=== PATIENT | male | born 1975 | race Caucasian/White ===

== ENCOUNTER 2017-06-10 08:33 | Emergency (ER) | payer OTHER, BC ==
[~2017-06-10 08:33] MED LIST: FELO10TA2 PO
[2017-06-10 08:38] VITALS: BP 200/117; PULSE 100; TEMP 36.6; O2SAT 97; Ht 167.6 cm
[2017-06-10] MEDS ORDERED: GLC/500 PO (08:52)
[2017-06-10] MEDS ORDERED: EPP3/2 IM (08:52)
[2017-06-10] MEDS ORDERED: XYLOCAINE 1%/SOD BICARB 20 ML VIAL INFIL ONE (09:30)
[2017-06-10] MEDS ORDERED: DIPHTHERIA/TETANUS/PERTUSSIS 0.5 ML SYR/VIAL IM. ONE (09:30)
--- NOTE | 2017-06-10 09:46 | EMERGENCY ROOM VISIT NOTE ---
ED Visit Note First contact with patient: 09:14 CHIEF COMPLAINT: Left fourth Finger laceration HISTORY OF PRESENT ILLNESS: This 42-year-old male patient cut the left fourth finger on a ping barrel while at work this morning.. The bleeding has stopped. Denies weakness or numbness of the finger. The patient's tetanus is not up-to -date. The patient is right-hand dominant. REVIEW OF SYSTEMS: 6 system review was performed and was negative unless stated otherwise in history of present illness. PMH: The patient is healthy; obesity SOCIAL HISTORY: Patient denies any tobacco use but admits to occasional alcohol use. PHYSICAL EXAM: Vital Signs: Were reviewed Reviewed Nurse's notes. GENERAL: 42- year-old white male appears in no acute distress. MENTAL Status: Alert and oriented 3. LEFT FOURTH FINGER: There is a 2 cm flap-like laceration on the palmar aspect of the distal phalanx . The edges gape apart with traction. There is no foreign material in the wound and it looks clean. There is no bleeding. No deep structures such as tendons or nerves are seen in the base of the wound. Extension of the finger is full and strong. EMERGENCY DEPARTMENT COURSE: The patient was evaluated. Adacel was given. Wound Repair: Complexity: Basic. Verbal consent was obtained after the risks and benefits were explained, including but not limited to bleeding, scarring, infection, pain, and bone/joint /nerve damage. The skin was prepped with betadine and a sterile field set. The wound was anesthetized with 2.0 ml of 1% buffered lidocaine. Copious irrigation was performed using sterile saline. The wound was explored for foreign bodies and a few pieces of dirt were removed. The edges of the wound were very irregular and and therefore they were trimmed off. The wound edges were approximated using 5-0 Ethilon with 5 simple interrupted sutures. Hemostasis and excellent approximation was achieved. Antibacterial ointment and a sterile dressing applied. Detailed wound care instructions and signs and symptoms of infection reviewed with the patient. No complications and the patient tolerated the procedure well. DIAGNOSIS: 2 cm left fourth Finger laceration DISCHARGE INSTRUCTIONS & TREATMENT: Keep wound clean and dry. No water on the area for 12-24 hrs then no soaking until sutures removed. Do not allow any crusting or dried blood to accumulate on sutures. If this occurs, use a 1:1 solution of hydrogen peroxide/water on a Q-tip to clean the wound. Use an antibiotic ointment for 3-4 days, then let wound dry. Suture removal in 8-10 days. Follow up sooner for any signs of infection (increasing redness, swelling , drainage). Ice and elevate for swelling and pain. Tylenol 650 mg every 6 hrs for pain. Current/Historical Medications Scheduled Epinephrine (Epipen), 0.3 MG IM UD Felodipine (Plendil), 10 MG PO DAILY Metformin Hcl (Glucophage), 500 MG PO DAILY Allergies Coded Allergies: MORGAN Inhibitors (Verified Adverse Reaction, Intermediate, swelling to face , 06/10/17) Vital Signs Date Time Temp Pulse Resp B/P (MAP) Pulse Ox O2 Delivery O2 Flow Rate FiO2 06/10/17 08:38 36.6 100 20 200/117 97 Room Air Medications Administered Medications (Trade) Dose Ordered Sig/Leslie Route Start Time Stop Time Status Last Admin Dose Admin Diphtheria/ Pertussis/Tetanus Vacc (Adacel Inj) 0.5 ml ONCE ONCE IM. 06/10/17 09:30 06/10/17 09:31 DC 06/10/17 09:28 0.5 ML Departure Information Referrals No Doctor, Assigned (PCP) Patient Instructions [facility]
== END 2017-06-10 09:55 | disposition home or self-care (01) ==
LOC: C.EDB 08:34
DX: S61.215A Laceration without foreign body of left ring finger without damage to nail, initial encounter (principal); W26.8XXA Contact with other sharp object(s), not elsewhere classified, initial encounter; Y99.0 Civilian activity done for income or pay; Y92.89 Other specified places as the place of occurrence of the external cause; Z23 Encounter for immunization; E66.9 Obesity, unspecified; Z79.899 Other long term (current) drug therapy

== ENCOUNTER → 2017-06-13 | Outpatient (CLI) | payer OTHER, BC ==
[~2017-06-13] MED LIST changes: +EPP3/2 IM; +GLC/500 PO
--- NOTE | 2017-06-13 10:41 | DIAGNOSTIC IMAGING REPORT ---
LEFT FOURTH FINGER 3 VIEWS CLINICAL HISTORY: Left fourth finger pain status post trauma COMPARISON: None. DISCUSSION: No fractures or dislocations are visualized. There is distal soft tissue swelling. IMPRESSION: No fractures or dislocations identified. Electronically signed by: Faisal Simmons M.D. 06/13/2017 10:40 AM Dictated Date/Time: 06/13/2017 10:39 AM
== END | disposition home or self-care (01) ==
LOC: C.RAD1850 10:26
PROVIDERS: ATTEND Physician Assistant
DX: S69.92XA Unspecified injury of left wrist, hand and finger(s), initial encounter (principal); X58.XXXA Exposure to other specified factors, initial encounter

== ENCOUNTER 2019-05-05 15:41 | Inpatient (IN) ==
--- OUTSIDE RECORDS SUMMARY | 2019-05-05 15:45 | External Medical Summary | Continuity of Care Document ---
:1975 Author Name Renny Garcia, Provider Address Unavailable Unavailable , Care Team Providers Name Role Phone Didi Nichols PA-C Unavailable [email or web address] Unavailable Unavailable Unavailable Unavailable Unavailable Problems Visit for pre-operative examination (V72.84) (Z01.818) Chronic tonsillitis (474.00) (J35.01) Obstructive sleep apnea (327.23) (G47.33) Nasal congestion (478.19) (R09.81) Tonsillar hypertrophy (474.11) (J35.1) Hearing loss (389.9) (H91.90) Functional Status Hearing loss Allergies and Adverse Reactions No Known Drug Allergies (Allergy) Medications Felodipine ER TB24 Refills: 0 Omeprazole 40 MG Oral Capsule Delayed Release; TAKE 1 CAPSULE DAILY. Radha Adame Start: 03-Nov-2011 Quantity: 30 Refills: 3 Procedures History of Oral Surgery Tooth Extraction Status: Completed Immunizations Influenza Comments:Denied for 2010 Family History Father Family history of Acute Myocardial Infarction (V17.3) Status : Active Plan of Treatment Planned Observations Planned Goals not documented Results No Known Results Results not documented
[2019-05-05] MEDS ORDERED: SODIUM CHLORIDE 0.9% 1000ML 2,000 ML IV SCH (16:30)
[2019-05-05] MEDS ORDERED: CEFEPIME 2,000 MG/20 ML VIAL IV STA (16:51)
[2019-05-05] MEDS ORDERED: ACETAMINOPHEN 1,000 MG/100 ML VIAL IV STA (16:51)
--- NOTE | 2019-05-05 16:51 | Emergency Department Note ---
ED Provider Note CHIEF COMPLAINT: Left flank pain, fevers and chills HISTORY OF PRESENTING ILLNESS: This is a 43-year-old male with past medical history significant for hypertension and type 2 diabetes on oral medications only, who presents to the emergency department with complaint of left flank pain, fevers and chills. Patient states that he saw his PCP this morning for the symptoms, he had a CT scan that showed a blocking kidney stone on the left side. He states that his urine also showed some infection and large amounts of blood. His doctor called him and told him to go to the ER for further management. He denies any history of previous kidney stones or kidney issues. He currently rates his pain 4/10 and reports that he is feeling much improved after receiving some pain medication from his doctor earlier today. He denies any nausea currently. He still feels feverish and has some chills. He denies chest pain, shortness of breath, cough, dizziness or syncope. He denies any unusual rash. REVIEW OF SYSTEMS: A complete 10 point review of systems was reviewed with the patient with pertinent positives and negatives as per history of present illness. All else were negative. PAST MEDICAL HISTORY: Hypertension, type 2 diabetes SOCIAL HISTORY: Lives at home, he denies tobacco use ALLERGIES: Reviewed in chart and with the patient PHYSICAL EXAM: CONSTITUTIONAL: Pleasant and cooperative. Nontoxic-appearing and in no acute distress. Mildly dehydrated, but otherwise well appearing and well nourished. HEENT: Normocephalic, atraumatic. PERRL, EOMI. Pharynx normal. Tacky mucous membranes. NECK: Supple, full active range of motion without discomfort. No cervical adenopathy. RESPIRATORY: Clear to auscultation bilaterally with no wheezing, crackles, rhonchi or stridor. Equal expansion bilaterally. CARDIOVASCULAR: Regular rate and rhythm with no murmurs, rubs or gallops. Normal peripheral perfusion. No pitting edema. GASTROINTESTINAL: Soft, nontender, nondistended, obese abdomen. No palpable masses or HSM. Bowel sounds present in all quadrants. Left CVA tenderness to percussion. MUSCULOSKELETAL: Full range of motion of all joints without discomfort. INTEGUMENTARY: No rash or other significant dermatologic conditions noted. NEUROLOGIC: Alert and oriented X 4 with normal affect. Normal speech. Normal gait observed. ED COURSE AND MEDICAL DECISION MAKING: CC: Patient presenting with complaint of left flank pain, fevers and chills DIFFERENTIAL DIAGNOSIS: Includes, but not limited to ureteral stone, infected stone, UTI, pyelonephritis, EMBER, sepsis/bacteremia, dehydration, electrolyte abnormality, among others. INTERPRETATION OF LABS: Marked leukocytosis with left shift, no anemia, normal platelets, no significant electrolyte abnormalities, elevated kidney function tests, fairly normal liver enzymes and lipase. Significantly elevated lactic acid level. Urinalysis appears consistent with UTI with large blood, positive nitrite, positive leuk esterase, large WBCs, and bacteria. Urine culture pending. Blood cultures x2 pending. IMAGING: CT abdomen/pelvis without IV or oral contrast was performed today at 12:14 PM and an outpatient facility, the results of this were reviewed, noting the following impression: 5 x 8 mm left proximal ureteral calculus with mild hydronephrosis. ----- XR chest 1V portable CLINICAL HISTORY: fever, flank pain COMPARISON STUDY: No previous studies for comparison. FINDINGS: Lung volumes are normal. Lungs are clear. There is no pneumothorax or pleural effusion. Cardiac size is normal. Mediastinal contours are normal. There is no evidence for pulmonary edema. Exam is mildly compromised given suboptimal penetration. IMPRESSION: No acute cardiopulmonary findings. EKG: Shows sinus tachycardia with a rate of 125 bpm, no ST or T wave abnormalities with occasional PACs by my interpretation. No previous EKG available for comparison. MEDICATION RECONCILIATION: I attest that I have personally reviewed the patient's current medication list. INITIAL VITAL SIGNS REVIEW: I reviewed the patient's initial vital signs and interpret them as follows: T: Febrile; BP: Hypertensive; HR: Significantly tachycardic; RR: Within normal limits; Pulse Ox: Within normal limits on room air. Blood pressure screening: The patient was found to have an elevated blood pressure, which was felt to be situational. MDM SUMMARY: Patient was evaluated at bedside, history and physical exam performed. Patient is alert and oriented, in no acute distress, resting on the stretcher. Patient is noted to be febrile and significantly tachycardic, but he is nontoxic-appearing. He reports that his pain is currently improved after receiving pain medication from his doctor. There is left-sided CVA tenderness on exam. The abdomen does not seem to be tender, though exam is limited due to patient's body habitus. Orders were placed at bedside for saline lock, IV fluid bolus x2 L, labs, blood culture x2, UA and urine culture, EKG and chest x-ray to evaluate for tachycardia and fever. Records were reviewed from his outpatient visit today, CT report noting 5 x 8 mm proximal left obstructing stone with mild hydronephrosis. Urine dip showed large blood, large glucose, moderate ketones, trace leuk esterase, and positive nitrite. IV Ofirmev ordered to treat fever, 2 g IV cefepime ordered for broad coverage of suspected UTI in the setting of an obstructing kidney stone. Patient discussed with Dr. Freeman, who agrees with my assessment, plan, and disposition. Labs reviewed as above, notable for significant leukocytosis, mild EMBER, and lact ic acidosis. UA appears to be considerably infected, concerning in the setting of a known obstructing ureteral stone. I spoke on the phone with Dr. Ojeda, urology, regarding the patient's findings and concern for infected stone/sepsis, he agreed with the above treatment and plans to take the patient to the OR for stenting this evening. [facility] I spoke to Dr. Juarez, who will evaluate the patient for the admission. Patient reassessed multiple times throughout ED stay, he has remained hemodynamically stable, tachycardia and fever downtrending after Tylenol and fluids. The patient was updated on all results and plan for OR and admission, he verbalized understanding and was agreeable to this plan. The patient was stable at time of transfer to the OR. CRITICAL CARE NOTE: I have personally spent greater than 32 minutes of critical care time in the direct management of this patient. This includes bedside care, interpretation of diagnostic studies, and testing, discussion with consultants, patient, and family members, and other required patient management activities. This 32 minutes is in excess of all separately billable procedures. The chart was completed utilizing [employer] Speech voice recognition software. Grammatical errors, random word insertions, pronoun errors, and incomplete sentences are an occasional consequence of this system due to software limitations, ambient noise, and hardware issues. Any formal questions or concerns about the content, text, or information contained within the body of this dictation should be directly addressed to the nurse practitioner for clarification. Impression & Plan Left ureteral stone, Sepsis, Elevated lactic acid level Past Med/Surg History Medical History Acute UTI Left ureteral stone Social History Preferred Language: Divehi Communication Ability: Effective Data Recovery Planner Required: No Beliefs That Will Affect Care: None Current Living Situation: Parent Other Information That Helps Us Care for You: No Feels Safe at Home: Yes Safety Concerns: Feels Safe At This Time Smoking Status: Never smoker Do You Dip or Chew Tobacco: No ; Second Hand Exposure: No ; Tobacco Cessation Education Requested by Patient: No Hx Alcohol Use: Yes Hx Substance Use: No Results & Data Vital Signs Vital Signs - 24 hr 05/05/19 16:13 05/05/19 16:53 05/05/19 18:09 Temperature 37.8 C H Temperature Source Oral Sepsis Recent Fever Within 48 Hours Yes Sepsis New/Unexplained Change in Mental Status No Sepsis Action Taken by Nursing No Action Required Pulse Rate 138 H Pulse Rate [Apical] 121 H 121 H Pulse Rhythm Regular Pulse Strength Normal Respiratory Rate 22 22 21 Respiratory Effort / Characteristics Non-Labored Spontaneous Respiratory Depth Normal Respiratory Pattern Regular Blood Pressure 158/69 H Blood Pressure [Right Arm] 127/71 123/61 Blood Pressure Mean 98 Blood Pressure Mean [Right Arm] 89 81 Blood Pressure Position Sitting Pulse Oximetry 95 95 96 Oxygen Delivery Method Room Air 05/05/19 19:10 Temperature 37.6 C H Temperature Source Oral Sepsis Recent Fever Within 48 Hours Sepsis New/Unexplained Change in Mental Status Sepsis Action Taken by Nursing Pulse Rate Pulse Rate [Apical] 116 H Pulse Rhythm Pulse Strength Respiratory Rate 18 Respiratory Effort / Characteristics Respiratory Depth Respiratory Pattern Blood Pressure Blood Pressure [Right Arm] 112/69 Blood Pressure Mean Blood Pressure Mean [Right Arm] 83 Blood Pressure Position Pulse Oximetry 96 Oxygen Delivery Method Room Air Laboratory Data Result diagrams: 05/05/19 16:49 05/05/19 16:49 Lab Results 05/05/19 05/05/19 05/05/19 Range/Units 16:49 16:49 16:49 WBC 21.95 H (4.8-10.8) K/uL RBC 5.18 (4.7-6.1) M/uL Hgb 14.9 (14.0-18.0) g/dL Hct 42.0 (42-52) % MCV 81.1 (80-100) fL MCH 28.8 (25-34) pg MCHC 35.5 (32-36) g/dL RDW Std Deviation 42.6 (36.4-46.3) fL RDW Coeff of [place] 14.5 (11.5-14.5) % Plt Count 231 (130-400) K/uL MPV 10.7 H (7.4-10.4) fL Immature Gran % (Auto) 0.6 % Neut % (Auto) 91.6 % Lymph % (Auto) 2.6 % [place] % (Auto) 5.1 % Eos % (Auto) 0.0 % Baso % (Auto) 0.1 % Immature Gran # (Auto) 0.14 H (0.00-0.02) K/uL Neut # (Auto) 20.09 H (1.4-6.5) K/uL Lymph # (Auto) 0.56 L (1.2-3.4) K/uL [place] # (Auto) 1.13 H (0.11-0.59) K/uL Eos # (Auto) 0.01 (0-0.5) K/uL Baso # (Auto) 0.02 (0-0.2) K/uL PT 10.7 (9.0-12.0) Seconds INR 1.0 (0.9-1.1) Sodium (136-145) mmol/L Potassium (3.5-5.1) mmol/L Chloride (98-107) mmol/L Carbon Dioxide (21-32) mmol/L Anion Gap (3-11) BUN (7-18) mg/dl Creatinine (0.6-1.4) mg/dl Est Cr Clr Drug Dosing ml/min Est GFR ( Amer) Est GFR (Non-Af Amer) BUN/Creatinine Ratio (10-20) Glucose (70-99) mg/dl Lactate 3.1 H* (0.4-2.0) mmol/L Calcium (8.5-10.1) mg/dl Total Bilirubin (0.2-1) mg/dl AST (15-37) U/L ALT (12-78) U/L Alkaline Phosphatase (45-117) U/L Total Protein (6.4-8.2) gm/dl Albumin (3.4-5.0) gm/dl Globulin (2.5-4.0) gm/dl Albumin/Globulin Ratio (0.9-2) Lipase (73-393) U/L Urine Color Urine Appearance (Clear) Urine pH (4.5-7.5) Ur Specific [place] (1.000-1.030) Urine Protein (Negative) Urine Glucose (UA) (Negative) Urine Ketones (Negative) Urine Blood (Negative) Urine Nitrite (Negative) Urine Bilirubin (Negative) Urine Urobilinogen (Negative) Ur Leukocyte Esterase (Negative) Urine WBC (Auto) (0-5) /hpf Urine RBC (Auto) (0-4) /hpf U Hyaline Cast (Auto) (0-5) /lpf U Epithel Cells (Auto) (0-5) /lpf Urine Bacteria (Auto) (Negative) Urine Yeast 05/05/19 05/05/19 Range/Units 16:49 18:25 WBC (4.8-10.8) K/uL RBC (4.7-6.1) M/uL Hgb (14.0-18.0) g/dL Hct (42-52) % MCV (80-100) fL MCH (25-34) pg MCHC (32-36) g/dL RDW Std Deviation (36.4-46.3) fL RDW Coeff of [place]so (11.5-14.5) % Plt Count (130-400) K/uL MPV (7.4-10.4) fL Immature Gran % (Auto) % Neut % (Auto) % Lymph % (Auto) % [place] % (Auto) % Eos % (Auto) % Baso % (Auto) % Immature Gran # (Auto) (0.00-0.02) K/uL Neut # (Auto) (1.4-6.5) K/uL Lymph # (Auto) (1.2-3.4) K/uL [place] # (Auto) (0.11-0.59) K/uL Eos # (Auto) (0-0.5) K/uL Baso # (Auto) (0-0.2) K/uL PT (9.0-12.0) Seconds INR (0.9-1.1) Sodium 136 (136-145) mmol/L Potassium 3.6 (3.5-5.1) mmol/L Chloride 103 (98-107) mmol/L Carbon Dioxide 22 (21-32) mmol/L Anion Gap 11.0 (3-11) BUN 19 H (7-18) mg/dl Creatinine 1.41 H (0.6-1.4) mg/dl Est Cr Clr Drug Dosing 93.7 ml/min Est GFR ( Amer) 69.7 Est GFR (Non-Af Amer) 60.2 BUN/Creatinine Ratio 13.3 (10-20) Glucose 278 H (70-99) mg/dl Lactate (0.4-2.0) mmol/L Calcium 9.0 (8.5-10.1) mg/dl Total Bilirubin 0.9 (0.2-1) mg/dl AST 14 L (15-37) U/L ALT 32 (12-78) U/L Alkaline Phosphatase 125 H (45-117) U/L Total Protein 7.8 (6.4-8.2) gm/dl Albumin 3.5 (3.4-5.0) gm/dl Globulin 4.3 H (2.5-4.0) gm/dl Albumin/Globulin Ratio 0.8 L (0.9-2) Lipase 48 L (73-393) U/L Urine Color Dark Yellow Urine Appearance Turbid A (Clear) Urine pH 5.0 (4.5-7.5) Ur Specific [place] 1.040 H (1.000-1.030) Urine Protein 1+ H (Negative) Urine Glucose (UA) 2+ H (Negative) Urine Ketones 2+ H (Negative) Urine Blood 3+ H (Negative) Urine Nitrite Positive A (Negative) Urine Bilirubin 1+ H (Negative) Urine Urobilinogen Negative (Negative) Ur Leukocyte Esterase 2+ H (Negative) Urine WBC (Auto) >30 H (0-5) /hpf Urine RBC (Auto) >30 H (0-4) /hpf U Hyaline Cast (Auto) 1-5 (0-5) /lpf U Epithel Cells (Auto) >30 H (0-5) /lpf Urine Bacteria (Auto) 1+ H (Negative) Urine Yeast Not Reportable Administered Medications Discontinued Medications Sodium Chloride (Nss 1000ml) 2,000 mls @ 999 mls/hr IV .Q2H1M CHEL Stop: 05/05/19 18:30 Last Infusion: 05/05/19 19:07 Dose: 0 mls/hr Documented by: [id number] Admin: 05/05/19 17:05 Dose: 999 mls/hr Documented by: [id number] Cefepime HCl (Maxipime) 2,000 mg in 20 mls @ 5 mls/min IV NOW STA; Protocol Stop: 05/05/19 16:54 Last Admin: 05/05/19 17:35 Dose: 5 mls/min Documented by: [id number] Acetaminophen (Ofirmev) 1,000 mg in 100 mls @ 400 mls/hr IV NOW STA Stop: 05/05/19 17:05 Last Infusion: 05/05/19 18:58 Dose: 0 mls/hr Documented by: [id number] Admin: 05/05/19 17:05 Dose: 400 mls/hr Documented by: [id number] Sodium Chloride (Nss 1000ml) 1,000 mls @ 999 mls/hr IV .Q1H1M ONE Stop: 05/05/19 18:37 Last Admin: 05/05/19 19:15 Dose: 999 mls/hr Documented by: [id number] Discharge Plan Visit Data *Final* Discharge Date/Time: 05/05/19 19:37 Chief Complaint: Kidney Stone Stated Complaint: KIDNEY STONE ED Provider: Alton Freeman ED Midlevel Provider: Zahraa Rincon Discharge Problem: Left ureteral stone, Sepsis, Elevated lactic acid level Patient Disposition: Still a Patient Discharge Instructions Interventions: ED Discharge Assessment Last Done: 05/05/19 19:37
[2019-05-05 16:59] LABS: Hemoglobin 14.9 g/dL (14.0-18.0); Mean Corpuscular Hemoglobin 28.8 pg (25-34); Mean Corpuscular Hgb Conc 35.5 g/dL (32-36); Mean Corpuscular Volume 81.1 fL (80-100); Mean Platelet Volume 10.7 fL (7.4-10.4); Platelet Count 231 K/uL (130-400); RDW Coefficient of Variation 14.5 % (11.5-14.5); RDW Standard Deviation 42.6 fL (36.4-46.3); Red Blood Count 5.18 M/uL (4.7-6.1); White Blood Count 21.95 K/uL (4.8-10.8)
[2019-05-05 17:14] LABS: Prothrombin Time 10.7 Seconds (9.0-12.0)
[2019-05-05 17:18] LABS: Albumin Level 3.5 gm/dl (3.4-5.0); BUN Creatinine Ratio 13.3 (10-20); Creatinine Clr Calc Pharmacy 93.7 ml/min; Est GFR (African American) 69.7; Est GFR (Non-African American) 60.2; Potassium 3.6 mmol/L (3.5-5.1)
--- NOTE | 2019-05-05 17:18 | XRay Report ---
XR chest 1V portable CLINICAL HISTORY: fever, flank pain COMPARISON STUDY: No previous studies for comparison. FINDINGS: Lung volumes are normal. Lungs are clear. There is no pneumothorax or pleural effusion. Car diac size is normal. Mediastinal contours are normal. There is no evidence for pulmonary edema. Exam is mildly compromised given suboptimal penetration. IMPRESSION: No acute cardiopulmonary findings. Electronically signed by: Rafael Pena M.D. 05/05/2019 5:17 PM
[2019-05-05 17:19] LABS: Albumin Globulin Ratio 0.8 (0.9-2); Bilirubin,Total 0.9 mg/dl (0.2-1); Globulin 4.3 gm/dl (2.5-4.0); Total Protein 7.8 gm/dl (6.4-8.2)
[2019-05-05 17:22] LABS: Basophils # (auto) 0.02 K/uL (0-0.2); Basophils % (auto) 0.1 %; Eosinophils # (auto) 0.01 K/uL (0-0.5); Immature Granulocytes # (auto) 0.14 K/uL (0.00-0.02); Immature Granulocytes % (auto) 0.6 %; Lymphocytes # (auto) 0.56 K/uL (1.2-3.4); Lymphocytes % (auto) 2.6 %; Monocytes # (auto) 1.13 K/uL (0.11-0.59); Monocytes % (auto) 5.1 %; Neutrophils # (auto) 20.09 K/uL (1.4-6.5); Neutrophils % (auto) 91.6 %
[2019-05-05] MEDS ORDERED: SODIUM CHLORIDE 0.9% 1000ML 1,000 ML IV ONE (17:37)
[2019-05-05 19:09] LABS: Appearance Urine Turbid (Clear); Bacteria Urine Automated 1+ (Negative); Blood Urine 3+ (Negative); Color Urine Dark Yellow; Epithelial Cell Urine Auto >30 /lpf (0-5); Glucose Urine UA 2+ (Negative); Ketones Urine 2+ (Negative); Leukocyte Esterase Urine 2+ (Negative); Nitrite Urine Positive (Negative); Protein Urine 1+ (Negative); Urobilinogen Urine Negative (Negative); WBC Urine Automated >30 /hpf (0-5)
[2019-05-05 19:14] LABS: Bilirubin Urine 1+ (Negative)
[2019-05-05 19:29] LABS: Ictotest Urine Positive (Negative); RBC Urine Automated >30 /hpf (0-4)
[2019-05-05] MEDS ORDERED: MIDAZOLAM HCL 1 MG/ML 2ML VIAL ONE (19:41)
[2019-05-05] MEDS ORDERED: fentaNYL citrate 100 MCG/2 ML VIAL ONE ×3 (19:42→22:15)
--- NOTE | 2019-05-05 19:51 | Anesthesiology Consultation ---
Date of Service May 05, 2019 Assessment & Plan Chart Review Chart Review: Acceptable Risk for Surgery Consults Requested none History Surgery Operation Date: 05/05/19 19:30 Proposed Procedures p Ureteral Stent Insertion/Removal - Puneet Ojeda MD Height/Weight Height: 5 ft 6 in Weight: 152 kg Allergies Allergy/AdvReac Type Severity Reaction Status Date / Time MORGAN Inhibitors AdvReac Intermediate swelling Verified 05/05/19 17:52 to face Medications Home Medications Medication Instructions Recorded Confirmed Last Taken atorvastatin 10 mg PO DAILY 05/05/19 05/05/19 Unknown epinephrine [EpiPen 2-Puneet] 0.3 mg IM Q3H PRN 05/05/19 05/05/19 Unknown felodipine 10 mg PO DAILY 05/05/19 05/05/19 Unknown glimepiride 8 mg PO DAILY 05/05/19 05/05/19 Unknown ketorolac 10 mg PO Q6H PRN 05/05/19 05/05/19 Unknown losartan 50 mg PO DAILY 05/05/19 05/05/19 Unknown metformin 20,000 mg PO DAILY 05/05/19 05/05/19 Unknown pioglitazone 45 mg PO DAILY 05/05/19 05/05/19 Unknown sulfamethoxazole-trimethoprim 1 tab PO BID 05/05/19 05/05/19 05/05/19 tamsulosin 0.4 mg PO DAILY 05/05/19 05/05/19 Unknown NPO Date Last Intake of Fluids: 05/05/19 Time Last Intake of Fluids: 13:00 Date Last Intake of Solids: 05/05/19 Time Last Intake of Solids: 08:00 Social History Smoking Status: Never smoker Do You Dip or Chew Tobacco: No Hx Alcohol Use: Yes alcohol intake frequency: other Alcohol Intake Frequency Comment: weekends, 20 drinks a month Hx Substance Use: No substance use type: does not use Physical Exam Vital Signs Last Vital Signs Temp 37.6 C H 05/05/19 19:10 Pulse 116 H 05/05/19 19:10 Resp 18 05/05/19 19:10 BP 112/69 05/05/19 19:10 Pulse Ox 96 05/05/19 19:10 Testing Laboratory Results 05/05/19 16:49 05/05/19 16:49 PT 10.7 Seconds (9.0-12.0) 05/05/19 16:49 INR 1.0 (0.9-1.1) 05/05/19 16:49 Urine Color Dark Yellow 05/05/19 18:25 Urine Appearance Turbid (Clear) A 05/05/19 18: Urine pH 5.0 (4.5-7.5) 05/05/19 18:25 Ur Specific [place] 1.040 (1.000-1.030) H 05/05/19 18:25 Urine Protein 1+ (Negative) H 05/05/19 18: Urine Glucose (UA) 2+ (Negative) H 05/05/19 18:25 Urine Ketones 2+ (Negative) H 05/05/19 18:25 Urine Nitrite Positive (Negative) A 05/05/19 18:25 Ur Leukocyte Esterase 2+ (Negative) H 05/05/19 18:25 Urine WBC (Auto) >30 /hpf (0-5) H 05/05/19 18:25 Urine RBC (Auto) >30 /hpf (0-4) H 05/05/19 18:25 U Hyaline Cast (Auto) 1-5 /lpf (0-5) 05/05/19 18:25 U Epithel Cells (Auto) >30 /lpf (0-5) H 05/05/19 18:25 Urine Bacteria (Auto) 1+ (Negative) H 05/05/19 18:25
[2019-05-05] MEDS ORDERED: ePHEDrine sulfate 50 MG/ML AMP IV PRN (19:52)
[2019-05-05] MEDS ORDERED: PROMETHAZINE HCL 12.5 MG in SODIUM CHLORIDE 0.9% 50 ML IV PRN (19:52)
[2019-05-05] MEDS ORDERED: ONDANSETRON INJ 2 MG/ML 2 ML VIAL IV PRN ×2 (19:52→23:32)
[2019-05-05] MEDS ORDERED: fentaNYL citrate 100 MCG/2 ML VIAL IV PRN (19:52)
[2019-05-05] MEDS ORDERED: HYDROmorphone INJ 2 MG/ML SYR/VIAL IV PRN (19:52)
[2019-05-05] MEDS ORDERED: METOCLOPRAMIDE HCL INJ 5 MG/ML 2 ML VIAL IV PRN (19:52)
[2019-05-05] MEDS ORDERED: ATROPINE SULFATE 0.1 MG/ML 10ML SYR IV PRN (19:52)
[2019-05-05] MEDS ORDERED: IOTHALAMATE MEGLUMINE II 17.2% 250 ML VIAL ONE (20:01)
--- NOTE | 2019-05-05 20:05 | Urology Consultation ---
Date of Consultation May 05, 2019 Assessment & Plan (1) Left ureteral stone: A/P 43 yo male with obstructing L ureteral stone and UTI. Findings reviewed with patient. NPO since AM. To OR for emergent cysto, left retrograde pyelogram and left ureteral stent. Consent obtained, patient marked, OR as planned. History of Present Illness Reason for Consultation: Left stone with possible infection / urosepsis. Attending Physician: Puneet Ojeda MD History of Present Illness 43 yo male here due to pain since AM. He presented to the ER locally from 45 minutes ago due to worsening pain. He was noted to have a stone in the ureter on CT scan from PMD. He notes he had fevers and shakes at home so presented to the ER. This is his second stone episode, first 10 years ago, passed spontaneously. He is being brought to the OR emergently for decompression due to concern over obstructing stone with UTI / sepsis. His WBC, fevers and UA findings are noted. Allergies Allergy/AdvReac Type Severity Reaction Status Date / Time MORGAN Inhibitors AdvReac Intermediate swelling Verified 05/05/19 17:52 to face Home Medications Home Medications Medication Instructions Recorded Confirmed Type atorvastatin 10 mg PO DAILY 05/05/19 05/05/19 History epinephrine [EpiPen 2-Puneet] 0.3 mg IM Q3H PRN 05/05/19 05/05/19 History felodipine 10 mg PO DAILY 05/05/19 05/05/19 History glimepiride 8 mg PO DAILY 05/05/19 05/05/19 History ketorolac 10 mg PO Q6H PRN 05/05/19 05/05/19 History losartan 50 mg PO DAILY 05/05/19 05/05/19 History metformin 20,000 mg PO DAILY 05/05/19 05/05/19 History pioglitazone 45 mg PO DAILY 05/05/19 05/05/19 History sulfamethoxazole-trimethoprim 1 tab PO BID 05/05/19 05/05/19 History tamsulosin 0.4 mg PO DAILY 05/05/19 05/05/19 History Patient History Medical History Acute UTI Left ureteral stone Social History Preferred Language: Trinidadian Communication Ability: Effective Hyperion Developer Required: No Beliefs That Will Affect Care: None Current Living Situation: Parent Other Information That Helps Us Care for You: No Feels Safe at Home: Yes Safety Concerns: Feels Safe At This Time Smoking Status: Never smoker Do You Dip or Chew Tobacco: No ; Second Hand Exposure: No ; Tobacco Cessation Education Requested by Patient: No Hx Alcohol Use: Yes Hx Substance Use: No Review of Systems Constitutional: no fever and no chills Eyes: no diplopia Ear, Nose, Mouth, Throat: no ear trauma Respiratory: no hemoptysis Cardiovascular: no chest pain Gastrointestinal: + nausea and + vomiting; no abdominal pain Genitourinary: + flank pain Musculoskeletal: + back pain Integumentary: no acne and no boil Neurologic: no paralysis and no numbness Psychiatric: no hopelessness Endocrine: + fatigue Hematologic / Lymphatic: no coagulopathy Allergy / Immunological: no tongue swelling Physical Exam Constitutional: + acute distress and + morbidly obese Eyes: eyes not dysmorphic ENMT: Ears: no external ear abnormality Neck: trachea midline; no anterior neck swelling Respiratory: no respiratory distress and does not use accessory muscles Cardiovascular: Vessels: radial pulses present Gastrointestinal (Abdomen): Percussion/Palpation: + abdomen tender; + abdomen not soft Musculoskeletal: Head/Neck/Chest: normocephalic and neck supple Skin: normal turgor Neurologic: awake; not obtunded Psychiatric: Orientation: oriented x 3 Lymphatic: no lymphadenopathy Results & Data Vital Signs (Past 12 Hours) Vital Signs Temp Pulse Pulse Resp BP BP Pulse Ox 05/05/19 19:10 37.6 C H 116 H 18 112/69 96 05/05/19 18:09 121 H 21 123/61 96 05/05/19 16:53 121 H 22 127/71 95 05/05/19 16:13 37.8 C H 138 H 22 158/69 H 95 Laboratory Results Laboratory Results - last 48 hr 05/05/19 05/05/19 05/05/19 16:49 16:49 16:49 WBC 21.95 H RBC 5.18 Hgb 14.9 Hct 42.0 MCV 81.1 MCH 28.8 MCHC 35.5 RDW Std Deviation 42.6 RDW Coeff of [place]so 14.5 Plt Count 231 MPV 10.7 H Immature Gran % (Auto) 0.6 Neut % (Auto) 91.6 Lymph % (Auto) 2.6 [place] % (Auto) 5.1 Eos % (Auto) 0.0 Baso % (Auto) 0.1 Immature Gran # (Auto) 0.14 H Neut # (Auto) 20.09 H Lymph # (Auto) 0.56 L [place] # (Auto) 1.13 H Eos # (Auto) 0.01 Baso # (Auto) 0.02 PT 10.7 INR 1.0 Sodium Potassium Chloride Carbon Dioxide Anion Gap BUN Creatinine Est Cr Clr Drug Dosing Est GFR ( Amer) Est GFR (Non-Af Amer) BUN/Creatinine Ratio Glucose Lactate 3.1 H* Calcium Total Bilirubin AST ALT Alkaline Phosphatase Total Protein Albumin Globulin Albumin/Globulin Ratio Lipase Urine Color Urine Appearance Urine pH Ur Specific [place] Urine Protein Urine Glucose (UA) Urine Ketones Urine Blood Urine Nitrite Urine Bilirubin Urine Urobilinogen Ur Leukocyte Esterase Urine WBC (Auto) Urine RBC (Auto) U Hyaline Cast (Auto) U Epithel Cells (Auto) Urine Bacteria (Auto) Urine Yeast 05/05/19 05/05/19 16:49 18:25 WBC RBC Hgb Hct MCV MCH MCHC RDW Std Deviation RDW Coeff of [place] Plt Count MPV Immature Gran % (Auto) Neut % (Auto) Lymph % (Auto) [place] % (Auto) Eos % (Auto) Baso % (Auto) Immature Gran # (Auto) Neut # (Auto) Lymph # (Auto) [place] # (Auto) Eos # (Auto) Baso # (Auto) PT INR Sodium 136 Potassium 3.6 Chloride 103 Carbon Dioxide 22 Anion Gap 11.0 BUN 19 H Creatinine 1.41 H Est Cr Clr Drug Dosing 93.7 Est GFR ( Amer) 69.7 Est GFR (Non-Af Amer) 60.2 BUN/Creatinine Ratio 13.3 Glucose 278 H Lactate Calcium 9.0 Total Bilirubin 0.9 AST 14 L ALT 32 Alkaline Phosphatase 125 H Total Protein 7.8 Albumin 3.5 Globulin 4.3 H Albumin/Globulin Ratio 0.8 L Lipase 48 L Urine Color Dark Yellow Urine Appearance Turbid A Urine pH 5.0 Ur Specific [place] 1.040 H Urine Protein 1+ H Urine Glucose (UA) 2+ H Urine Ketones 2+ H Urine Blood 3+ H Urine Nitrite Positive A Urine Bilirubin 1+ H Urine Urobilinogen Negative Ur Leukocyte Esterase 2+ H Urine WBC (Auto) >30 H Urine RBC (Auto) >30 H U Hyaline Cast (Auto) 1-5 U Epithel Cells (Auto) >30 H Urine Bacteria (Auto) 1+ H Urine Yeast Not Reportable PG Care Time/CCT Total # of Minutes Spent Total Time Spent with Patient: Total time spent is greater than 50% in coordination of care (as documented) at patient's floor/unit and/or counseling patient:
[2019-05-05] MEDS ORDERED: CIPROFLOXACIN 400 MG/200 ML BAG IV SCH (20:15)
--- NOTE | 2019-05-05 20:53 | Operative Report ---
Post Operative Report Pre & Post Diagnosis Operation Date: 05/05/19 19:30 Pre-Op Diagnosis: Left ureteral stone with sepsis. Post-Op Diagnosis: Left ureteral stone with sepsis. Procedure Operation Date: 05/05/19 19:30 Actual Procedures p Cystoscopy, Left Retrograde Pyelogram, Left Ureteral Stent Insertion(Left) - Puneet Ojeda MD Surgeon Puneet Ojeda MD Plastic Welder NA Estimated Blood Loss 5 Findings Consistent with Post-Op Diagnosis Specimens NA Description of Procedure Cysto, L RPG, L stent I attest to the content of the Intraoperative Record and any orders documented therein. Any exceptions are noted below.
--- NOTE | 2019-05-05 21:10 | Operative Report ---
Post Operative Report Pre & Post Diagnosis Operation Date: 05/05/19 19:30 Pre-Op Diagnosis: Left ureteral stone with sepsis Post-Op Diagnosis: Left ureteral stone with sepsis Procedure: Cystoscopy, left ureteral stent placement. Anesthesia: Monitored anesthesia care with sedation. Drains left in place: 6 Turkmen multilength stent on the left-hand side. Specimen sent to pathology: None. Findings: Inability to access bladder with a rigid scope due to perineal obes ity, full coil visualized in the bladder with flexible cystoscope, redundant stent present at the level of the left renal pelvis. Procedure Operation Date: 05/05/19 19:30 Actual Procedures p Cystoscopy, Left Retrograde Pyelogram, Left Ureteral Stent Insertion(Left) - Puneet Ojeda MD Brief history: Patient is a 43-year-old morbidly obese male admitted via the emergency room for his second lifetime stone episode. This one is characterized by leukocytosis, febrile episodes with fevers and chills at home, malaise, tachycardia, UA which is suspicious for infection. Seen the concern over obstructing stone with urosepsis patient is being brought to the operating room emergently for decompression. Please see urology consultation for further details. Patient has been covered with cephalosporins preoperatively and with ciprofloxacin intraoperatively. Consent reviewed with the patient p reoperatively today. Procedure: Patient was properly identified and brought into the operative suite after identification of appropriate consent in the chart. Monitored anesthesia care with sedation was initiated and patient was prepped and draped in the standard fashion for this procedure. Full timeout procedure was followed. Rigid cystoscope was introduced into the urethra which was noted to be free of stricture. Prostate was visualized and elevated bladder neck was noted with some mild lateral lobe hypertrophy. Unfortunately, the bladder neck could not be bypassed despite changes in positioning attempts at torquing the scope to enter the bladder. 18 Turkmen coud catheter was introduced to decompress the bladder. Flexible cystoscope was introduced and some mild to moderate trauma to the prostatic urethra was appreciated. Cystoscope was passed into the bladder which was noted to be surprisingly patulous for a patient of this age. Bladder was surveyed in its entirety and no intravesical tumors or masses were appreciated. After some significant difficulties left-sided ureteral orifice was appreciated and cannulated using a sensor tip wire. This was advanced up to the level of the left kidney under fluoroscopic guidance. Seen the inability to place a stent through the flexible cystoscope stent was placed fluoroscopically using markings on the pressure to allow for a full coil within the bladder. Redundant stent was appreciated at the level of the left kidney. Flexible cystoscope was reintroduced into the bladder and a full coil was appreciated protruding from the ureteral orifice. Bladder was drained and cystoscope was removed. Anesthesia was reversed and patient was transferred to the recovery room in stable condition. Follow-up CARE: Patient will be admitted to the floor to the hospitalist service for further management of his urosepsis. Consider awaiting final culture results prior to discharge home seen the patient's presentation. We will plan on outpatient stone management when the patient's infection is resolved. Care is discussed with the patient's mother postoperatively as noted with the patient. Surgeon Puneet Ojeda MD Opto Mechanical Engineer NA Estimated Blood Loss 5 Findings Consistent with Post-Op Diagnosis Specimens NA Description of Procedure See above I attest to the content of the Intraoperative Record and any orders documented therein. Any exceptions are noted below.
--- NOTE | 2019-05-05 21:11 | Fluoroscopy Report ---
FL retrograde includes kub CLINICAL HISTORY: STENT INSERTION COMPARISON STUDY: None FLUOROSCOPY TIME: 81 seconds. NUMBER OF FLUOROSCOPIC IMAGES: 3 FINDINGS: 3 fluoroscopic spot images demonstrate placement of a left-sided nephroureteral stent. IMPRESSION: Intraoperative fluoroscopic spot images obtained during placement of a left-sided nephro ureteral stent Electronically signed by: Faisal Simmons M.D. 05/05/2019 9:10 PM
[2019-05-05] MEDS ORDERED: PROPOFOL IV EMULSION 10 MG/ML 20 ML VIAL IV ONE (21:24)
[2019-05-05] MEDS ORDERED: LIDOCAINE HCL 2% 2 ML VIAL/AMP(20MG/ML) INFIL ONE (21:24)
--- NOTE | 2019-05-05 22:14 | Anesthesiology Progress Note ---
Date of Service May 05, 2019 Anesthesia Post Procedure Vital Signs Vital Signs: Temp Pulse Pulse Resp BP BP Pulse Ox 05/05/19 21:50 37.2 C 122 H 28 H 141/84 H 92 05/05/19 21:40 121 H 26 H 137/92 92 05/05/19 21:30 123 H 28 H 140/89 92 05/05/19 21:20 130 H 25 H 132/89 94 05/05/19 21:10 130 H 19 159/91 H 94 05/05/19 21:04 37.1 C 135 H 25 H 120/89 100 05/05/19 19:10 37.6 C H 116 H 18 112/69 96 05/05/19 18:09 121 H 21 123/61 96 05/05/19 16:53 121 H 22 127/71 95 05/05/19 16:13 37.8 C H 138 H 22 158/69 H 95 Pain Intensity Back: Pain Intensity: 3 Left Flank: Pain Intensity: 3 Transfer of Care Handoff Completed per policy Notes Mental Status: alert / awake / arousable and participated in evaluation Patient Amnestic to Procedure: Yes Nausea / Vomiting: adequately controlled Pain: adequately controlled Airway Patency, RR, SpO2: stable & adequate BP & HR: stable & adequate Hydration State: stable & adequate Anesthetic Complications: no major complications apparent
--- NOTE | 2019-05-05 22:37 | History & Physical Report ---
Date of Service May 05, 2019 Assessment & Plan (1) Sepsis: Met criteria for severe sepsis per current CMS criteria. Source urinary tract infection with left ureteral stone. Blood cultures and urine were obtained in the ED and patient initially received broad-spectrum intravenous antibiotic coverage with IV cefepime. Hemodynamically stable. Received IV fluid resuscitation (approximately 3 L of normal saline in ED and an additional liter of lactated Ringer's in OR/PACU). Serum lactate 3.1. Taken to the OR for source control with left ureteral stent. Tachycardic postoperatively, but blood pressure stable. IV antibiotic therapy with ciprofloxacin. Repeat lactate postoperatively 3.0; continue to follow. (2) Urinary tract infection: Secondary to left ureteral stone. Management as discussed above. (3) Left ureteral stone: Outpatient CT prior to admission demonstrated proximal left ureteral stone with hydronephrosis. Urology consulted. Left ureteral stent placed. Further management per Urology. (4) Hypertension: Continue felodipine and losartan with hold parameters. (5) Sleep apnea: Continue CPAP. (6) Diabetes mellitus type 2 in obese: Patient reports blood sugars running in the 200s at home. Random blood sugar in ED 278. Hold oral agents. Check hemoglobin A1c. Basal/bolus insulin per protocol. (7) Morbid obesity: Weight 152 kg, BMI 54. Patient has lost some weight with dietary management. Heart healthy/diabetic diet. (8) Dyslipidemia: Continue atorvastatin. (9) DVT prophylaxis: No anticoagulants secondary to gross hematuria. SCDs. Ambulate. (10) Discharge planning issues: Anticipated discharge to home. Family Medicine follow-up with Dr. Marin. Urology follow-up with Dr. Ojeda. History of Present Illness Chief Complaint: left flank pain Primary Care Provider: Sheron Marin MD 43-year-old male followed by Dr. Marin for Family Medicine. History of hypertension, sleep apnea, diabetes, and other problems noted below. Developed left flank pain around 8:00 this morning. Flank pain was associate with nausea, but no emesis. Urine was dark, but not grossly bloody. No dysuria. Experienced malaise, fever, chills, sweats. Was seen in clinic this morning. Renal colic was suspected. Patient was prescribed trimethoprim/sulfamethoxazole, tamsulosin. A CT of the abdomen and pelvis was ordered. CT was performed at the [facility] and demonstrated a 5 x 8 mm left proximal ureteral calculus with mild hydronephrosis. Patient was notified and referred to the Emergency Department for further evaluation and management. Labs and blood cultures were obtained in the ED and patient was given IV fluids and started on IV cefepime. Urology consultation with Dr. Ojeda was obtained. Patient was taken to the operating room where a left ureteral stent was placed. Taken to ICU for postoperative recovery. Still experiencing severe left flank/abdominal pain; notes gross hematuria. Allergies Allergy/AdvReac Type Severity Reaction Status Date / Time MORGAN Inhibitors AdvReac Intermediate swelling Verified 05/05/19 17:52 to face Home Medications Home Medications Medication Instructions Recorded Confirmed Type aspirin [Aspirin Low Dose] 81 mg PO DAILY 05/05/19 05/05/19 History atorvastatin 10 mg PO DAILY 05/05/19 05/05/19 History epinephrine [EpiPen 2-Puneet] 0.3 mg IM Q3H PRN 05/05/19 05/05/19 History felodipine 10 mg PO DAILY 05/05/19 05/05/19 History glimepiride 8 mg PO DAILY 05/05/19 05/05/19 History ketorolac 10 mg PO Q6H PRN 05/05/19 05/05/19 History losartan 50 mg PO DAILY 05/05/19 05/05/19 History metformin 2,000 mg PO DAILY 05/05/19 05/05/19 History pioglitazone 45 mg PO DAILY 05/05/19 05/05/19 History sulfamethoxazole-trimethoprim 1 tab PO BID 05/05/19 05/05/19 History tamsulosin 0.4 mg PO DAILY 05/05/19 05/05/19 History Past Med/Surg History Medical History Metabolic syndrome (Chronic) Dyslipidemia (Chronic) Nonalcoholic steatohepatitis (Chronic) Morbid obesity (Chronic) Diabetes mellitus type 2 in obese (Chronic) Sleep apnea (Chronic) Hypertension (Chronic) Acute UTI Left ureteral stone Family History Father Hypertension Coronary heart disease Social History Preferred Language: Macedonian Communication Ability: Effective Diet Aid Required: No Beliefs That Will Affect Care: None Current Living Situation: Parent Other Information That Helps Us Care for You: No Feels Safe at Home: Yes Safety Concerns: Feels Safe At This Time Smoking Status: Never smoker Do You Dip or Chew Tobacco: No ; Second Hand Exposure: No ; Tobacco Cessation Education Requested by Patient: No Hx Alcohol Use: Yes Hx Substance Use: No Review of Systems Constitutional: + fever, + chills, + sweats, + malaise and + weight loss (Inte ntional) Eyes: no diplopia and no worsening vision Ear, Nose, Mouth, Throat: no nasal congestion, no sinus pain/pressure and no sore throat Respiratory: no cough and no dyspnea Cardiovascular: no chest pain, no palpitations and no edema Additional Comments: chronic lower extremity edema Gastrointestinal: + nausea; no vomiting, no constipation, no diarrhea/loose stools, no blood in stools and no melena Genitourinary: + as per Subjective / HPI Musculoskeletal: + joint pain; no myalgia Integumentary: no rash and no new lesions Neurologic: no headache(s) Endocrine: no polydipsia and no polyuria blood sugars at home running in 200s Hematologic / Lymphatic: no easy bleeding, no easy bruising and no lymphadenopathy Physical Exam Constitutional: + ill appearing and + obese Eyes: PERRL, conjunctivae normal, anicteric sclerae ENMT: external ear and nose normal, oropharynx normal Neck: trachea midline, no thyromegaly Respiratory: normal respiratory effort, lungs clear to auscultation Cardiovascular: Rate/Rhythm: regular rate and + tachycardic Heart Sounds: no gallop, no murmur and no cardiac rub Vessels: no JVD Extremities: normal capillary refill and + edema (chronic appearing lymphedema lower extremities); no calf tenderness Gastrointestinal (Abdomen): Inspection/Auscultation: + abnormal bowel sounds (quiet bowel sounds) Percussion/Palpation: + abdomen tender and + hernia (umbilical) left-sided abdominal/flank pain Musculoskeletal: Head/Neck/Chest: neck supple Extremities: strength 5/5 throughout; no cyanosis and no clubbing Skin: no rashes, warm and dry chronic venous stasis changes lower extremities Neurologic: PERRL, EOMI no facial palsy no dysarthria or aphasia Psychiatric: Orientation: alert and oriented x 3 Affect: euthymic affect Lymphatic: no cervical lymphadenopathy Results & Data Vital Signs (Past 12 Hours) Vital Signs Temp Pulse Pulse Resp BP BP Pulse Ox 05/05/19 22:25 118 H 26 H 107/91 93 05/05/19 22:15 122 H 25 H 141/79 H 92 05/05/19 22:00 120 H 21 140/90 92 05/05/19 21:50 37.2 C 122 H 28 H 141/84 H 92 05/05/19 21:40 121 H 26 H 137/92 92 05/05/19 21:30 123 H 28 H 140/89 92 05/05/19 21:20 130 H 25 H 132/89 94 05/05/19 21:10 130 H 19 159/91 H 94 05/05/19 21:04 37.1 C 135 H 25 H 120/89 100 05/05/19 19:10 37.6 C H 116 H 18 112/69 96 05/05/19 18:09 121 H 21 123/61 96 05/05/19 16:53 121 H 22 127/71 95 05/05/19 16:13 37.8 C H 138 H 22 158/69 H 95 Laboratory Results Laboratory Results - last 24 hr 05/05/19 05/05/19 05/05/19 16:49 16:49 16:49 WBC 21.95 H RBC 5.18 Hgb 14.9 Hct 42.0 MCV 81.1 MCH 28.8 MCHC 35.5 RDW Std Deviation 42.6 RDW Coeff of [place] 14.5 Plt Count 231 MPV 10.7 H Immature Gran % (Auto) 0.6 Neut % (Auto) 91.6 Lymph % (Auto) 2.6 [place] % (Auto) 5.1 Eos % (Auto) 0.0 Baso % (Auto) 0.1 Immature Gran # (Auto) 0.14 H Neut # (Auto) 20.09 H Lymph # (Auto) 0.56 L [place] # (Auto) 1.13 H Eos # (Auto) 0.01 Baso # (Auto) 0.02 PT 10.7 INR 1.0 Sodium Potassium Chloride Carbon Dioxide Anion Gap BUN Creatinine Est Cr Clr Drug Dosing Est GFR ( Amer) Est GFR (Non-Af Amer) BUN/Creatinine Ratio Glucose POC Glucose Lactate 3.1 H* Calcium Total Bilirubin AST ALT Alkaline Phosphatase Total Protein Albumin Globulin Albumin/Globulin Ratio Lipase Urine Color Urine Appearance Urine pH Ur Specific [place] Urine Protein Urine Glucose (UA) Urine Ketones Urine Blood Urine Nitrite Urine Bilirubin Urine Urobilinogen Ur Leukocyte Esterase Urine WBC (Auto) Urine RBC (Auto) U Hyaline Cast (Auto) U Epithel Cells (Auto) Urine Bacteria (Auto) Urine Yeast 05/05/19 05/05/19 05/05/19 16:49 18:25 21:07 WBC RBC Hgb Hct MCV MCH MCHC RDW Std Deviation RDW Coeff of [place] Plt Count MPV Immature Gran % (Auto) Neut % (Auto) Lymph % (Auto) [place] % (Auto) Eos % (Auto) Baso % (Auto) Immature Gran # (Auto) Neut # (Auto) Lymph # (Auto) [place] # (Auto) Eos # (Auto) Baso # (Auto) PT INR Sodium 136 Potassium 3.6 Chloride 103 Carbon Dioxide 22 Anion Gap 11.0 BUN 19 H Creatinine 1.41 H Est Cr Clr Drug Dosing 93.7 Est GFR ( Amer) 69.7 Est GFR (Non-Af Amer) 60.2 BUN/Creatinine Ratio 13.3 Glucose 278 H POC Glucose 274 H Lactate Calcium 9.0 Total Bilirubin 0.9 AST 14 L ALT 32 Alkaline Phosphatase 125 H Total Protein 7.8 Albumin 3.5 Globulin 4.3 H Albumin/Globulin Ratio 0.8 L Lipase 48 L Urine Color Dark Yellow Urine Appearance Turbid A Urine pH 5.0 Ur Specific [place] 1.040 H Urine Protein 1+ H Urine Glucose (UA) 2+ H Urine Ketones 2+ H Urine Blood 3+ H Urine Nitrite Positive A Urine Bilirubin 1+ H Urine Urobilinogen Negative Ur Leukocyte Esterase 2+ H Urine WBC (Auto) >30 H Urine RBC (Auto) >30 H U Hyaline Cast (Auto) 1-5 U Epithel Cells (Auto) >30 H Urine Bacteria (Auto) 1+ H Urine Yeast Not Reportable 05/05/19 05/05/19 22:51 22:51 WBC RBC Hgb Hct MCV MCH MCHC RDW Std Deviation RDW Coeff of [place] Plt Count MPV Immature Gran % (Auto) Neut % (Auto) Lymph % (Auto) [place] % (Auto) Eos % (Auto) Baso % (Auto) Immature Gran # (Auto) Neut # (Auto) Lymph # (Auto) [place] # (Auto) Eos # (Auto) Baso # (Auto) PT INR Sodium 137 Potassium 3.9 Chloride 105 Carbon Dioxide 21 Anion Gap 10.0 BUN 15 Creatinine 1.21 Est Cr Clr Drug Dosing 109.2 Est GFR ( Amer) 83.9 Est GFR (Non-Af Amer) 72.4 BUN/Creatinine Ratio 12.3 Glucose 297 H POC Glucose Lactate 3.0 H* Calcium 8.3 L Total Bilirubin AST ALT Alkaline Phosphatase Total Protein Albumin Globulin Albumin/Globulin Ratio Lipase Urine Color Urine Appearance Urine pH Ur Specific [place] Urine Protein Urine Glucose (UA) Urine Ketones Urine Blood Urine Nitrite Urine Bilirubin Urine Urobilinogen Ur Leukocyte Esterase Urine WBC (Auto) Urine RBC (Auto) U Hyaline Cast (Auto) U Epithel Cells (Auto) Urine Bacteria (Auto) Urine Yeast Diagnostic Findings Chest x-ray was unremarkable. ECG Additional Comments: EKG performed at 1651 reviewed and demonstrated sinus tachycardia at 125/minute, biphasic T waves in lead III. Code Status & VTE Plan VTE Prophylaxis Plan VTE Prophylaxis will be ordered: Yes (1) Sepsis Acute renal failure type: unspecified Sepsis acute organ dysfunction status: with acute organ dysfunction Sepsis type: sepsis due to unspecified organism Severe sepsis acute organ dysfunction type: acute renal failure Severe sepsis shock status: without septic shock Qualified Code(s): A41.9 - Sepsis, unspecified organism; R65.20 - Severe sepsis without septic shock; N17.9 - Acute kidney failure, unspecified
[2019-05-05 23:15] LABS: BUN Creatinine Ratio 12.3 (10-20); Calcium 8.3 mg/dl (8.5-10.1); Creatinine Clr Calc Pharmacy 109.2 ml/min; Est GFR (African American) 83.9; Est GFR (Non-African American) 72.4; Potassium 3.9 mmol/L (3.5-5.1)
[2019-05-06] MEDS: LACTATED RINGER'S 1,000 ML IV SCH ×4 (00:28→22:50)
[2019-05-06] MEDS: ACETAMINOPHEN 325 MG TAB PO PRN ×4 (00:29→18:07)
[2019-05-06] MEDS: HYDROmorphone INJ 1 MG/ML SYRINGE IV PRN ×2 (00:29→20:47)
[2019-05-06] MEDS: INSULIN ASPART 100 UNITS/ML 3 ML PEN SC SCH ×5 (04:41→20:45)
[2019-05-06] MEDS ORDERED: PNEUMOCOCCAL ADMINISTRATION CHARGE ONE (05:45)
[2019-05-06] MEDS ORDERED: PNEUMOCOCCAL POLYSACCHARIDES 25 MCG/0.5 ML VIAL/SYR IM ONE (05:45)
[2019-05-06 06:19] LABS: Hematocrit (blood only) 40.9 % (42-52); Hemoglobin 14.1 g/dL (14.0-18.0); Mean Corpuscular Hemoglobin 28.1 pg (25-34); Mean Corpuscular Hgb Conc 34.5 g/dL (32-36); Mean Corpuscular Volume 81.6 fL (80-100); Mean Platelet Volume 10.8 fL (7.4-10.4); Platelet Count 217 K/uL (130-400); RDW Coefficient of Variation 14.8 % (11.5-14.5); RDW Standard Deviation 43.6 fL (36.4-46.3); Red Blood Count 5.01 M/uL (4.7-6.1); White Blood Count 23.18 K/uL (4.8-10.8)
[2019-05-06 06:48] LABS: BUN Creatinine Ratio 12.8 (10-20); Calcium 8.8 mg/dl (8.5-10.1); Creatinine Clr Calc Pharmacy 155.4 ml/min; Est GFR (African American) 122.8; Potassium 3.6 mmol/L (3.5-5.1)
[2019-05-06 06:57] LABS: Estimated Average Glucose 214 mg/dl; Hemoglobin A1C 9.1 % (4.5-5.6)
--- NOTE | 2019-05-06 07:22 | Anesthesiology Progress Note ---
Date of Service May 06, 2019 Anesthesia Post Procedure Vital Signs Vital Signs: Temp Pulse Pulse Resp BP BP Pulse Ox 05/06/19 04:06 36.6 C 102 H 18 145/99 H 95 05/06/19 02:16 100 H 05/05/19 23:09 37.4 C 113 H 24 153/83 H 95 05/05/19 22:35 118 H 22 140/85 93 05/05/19 22:25 118 H 26 H 107/91 93 05/05/19 22:15 122 H 25 H 141/79 H 92 05/05/19 22:00 120 H 21 140/90 92 05/05/19 21:50 37.2 C 122 H 28 H 141/84 H 92 05/05/19 21:40 121 H 26 H 137/92 92 05/05/19 21:30 123 H 28 H 140/89 92 05/05/19 21:20 130 H 25 H 132/89 94 05/05/19 21:10 130 H 19 159/91 H 94 05/05/19 21:04 37.1 C 135 H 25 H 120/89 100 05/05/19 19:10 37.6 C H 116 H 18 112/69 96 05/05/19 18:09 121 H 21 123/61 96 05/05/19 16:53 121 H 22 127/71 95 05/05/19 16:13 37.8 C H 138 H 22 158/69 H 95 Pain Intensity Back: Pain Intensity: 3 Left Flank: Pain Intensity: 3 Notes Mental Status: alert / awake / arousable and participated in evaluation Nausea / Vomiting: adequately controlled Pain: adequately controlled Airway Patency, RR, SpO2: stable & adequate BP & HR: stable & adequate Hydration State: stable & adequate
[2019-05-06] MEDS ORDERED: INSULIN ASPART 100 UNITS/ML 3 ML PEN SC SCH (07:30)
[2019-05-06] MEDS: LOSARTAN POTASSIUM 50 MG TAB PO SCH (07:51)
[2019-05-06] MEDS: TAMSULOSIN HCL 0.4 MG CAP PO SCH (07:51)
[2019-05-06] MEDS: ATORVASTATIN 10 MG TAB PO SCH (07:52)
[2019-05-06] MEDS: FELODIPINE 5 MG TABCR PO SCH (07:52)
[2019-05-06] MEDS: INSULIN GLARGINE SOLOSTAR 100 UNITS/ML 3 ML PEN SC SCH ×2 (07:52→20:46)
[2019-05-06] MEDS: PHENAZOPYRIDINE HCL 200 MG TAB PO PRN ×2 (08:30→19:11)
[2019-05-06] MEDS ORDERED: CONSULT PHARMACY STA (08:34)
[2019-05-06] MEDS ORDERED: PIPERACILL/TAZOBAC CONSULT ACTIVE PRN (08:44)
[2019-05-06] MEDS ORDERED: PIPERACILLIN/TAZOBACTAM 4.5 GM in DEXTROSE 5% 100 ML IV ONE (09:15)
--- NOTE | 2019-05-06 09:56 | Urology Progress Note ---
Date of Service May 06, 2019 Assessment & Plan (1) Urinary tract infection: (2) Left ureteral stone: A/P 43 yo male POD#1 s/p L ureteral stent for stone and sepsis. Clinically improving. Await cultures, convert to PO coverage x 2 weeks for complicated UTI. Will plan on outpatient stone management. Seen obesity and complex airway will need to be done endoscopically at hospital, ESWL not likely to be option. Patient vocalizes understanding of the treatment plan. Subjective Patient in MICU POD#1 s/p acute L stent placement. He reports he feels better, chills improved. Overnight events noted, hospitalist notes reviewed. Remains ta chycardic and hypertensive albeit improving. Review of Systems Constitutional: + fever, + chills (improving) and + malaise Eyes: no diplopia Ear, Nose, Mouth, Throat: no ear trauma Respiratory: no hemoptysis Cardiovascular: no chest pain Integumentary: no acne and no boil Neurologic: no paralysis Psychiatric: no hopelessness Allergy / Immunological: no tongue swelling Physical Exam Constitutional: + obese; no acute distress Eyes: eyes not dysmorphic ENMT: Ears: no hearing impairment Neck: trachea midline; no anterior neck swelling Respiratory: no respiratory distress and does not use accessory muscles Cardiovascular: Vessels: radial pulses present Gastrointestinal (Abdomen): Inspection/Auscultation: + abdomen distended Percussion/Palpation: abdomen soft left-sided abdominal/flank pain Musculoskeletal: Head/Neck/Chest: normocephalic and neck supple Skin: normal turgor chronic venous stasis changes lower extremities Neurologic: awake; not obtunded PERRL, EOMI no facial palsy no dysarthria or aphasia Psychiatric: Orientation: alert and oriented x 3 Affect: euthymic affect Lymphatic: no cervical lymphadenopathy Results & Data Vital Signs (Past 12 Hours) Vital Signs Temp Pulse Pulse Resp BP Pulse Ox 05/06/19 07:36 36.9 C 100 H 20 156/92 H 93 05/06/19 04:06 36.6 C 102 H 18 145/99 H 95 05/06/19 02:16 100 H 05/05/19 23:09 37.4 C 113 H 24 153/83 H 95 05/05/19 22:35 118 H 22 140/85 93 05/05/19 22:25 118 H 26 H 107/91 93 05/05/19 22:15 122 H 25 H 141/79 H 92 05/05/19 22:00 120 H 21 140/90 92 Laboratory Results Laboratory Results - last 48 hr 05/05/19 05/05/19 05/05/19 16:49 16:49 16:49 WBC 21.95 H RBC 5.18 Hgb 14.9 Hct 42.0 MCV 81.1 MCH 28.8 MCHC 35.5 RDW Std Deviation 42.6 RDW Coeff of [place] 14.5 Plt Count 231 MPV 10.7 H Immature Gran % (Auto) 0.6 Neut % (Auto) 91.6 Lymph % (Auto) 2.6 [place] % (Auto) 5.1 Eos % (Auto) 0.0 Baso % (Auto) 0.1 Immature Gran # (Auto) 0.14 H Neut # (Auto) 20.09 H Lymph # (Auto) 0.56 L [place] # (Auto) 1.13 H Eos # (Auto) 0.01 Baso # (Auto) 0.02 PT 10.7 INR 1.0 Sodium Potassium Chloride Carbon Dioxide Anion Gap BUN Creatinine Est Cr Clr Drug Dosing Est GFR ( Amer) Est GFR (Non-Af Amer) BUN/Creatinine Ratio Glucose POC Glucose Estimat Average Glucose Hemoglobin A1c Lactate 3.1 H* Calcium Total Bilirubin AST ALT Alkaline Phosphatase Total Protein Albumin Globulin Albumin/Globulin Ratio Lipase Urine Color Urine Appearance Urine pH Ur Specific [place] Urine Protein Urine Glucose (UA) Urine Ketones Urine Blood Urine Nitrite Urine Bilirubin Urine Urobilinogen Ur Leukocyte Esterase Urine WBC (Auto) Urine RBC (Auto) U Hyaline Cast (Auto) U Epithel Cells (Auto) Urine Bacteria (Auto) Urine Yeast 05/05/19 05/05/19 05/05/19 16:49 18:25 21:07 WBC RBC Hgb Hct MCV MCH MCHC RDW Std Deviation RDW Coeff of [place] Plt Count MPV Immature Gran % (Auto) Neut % (Auto) Lymph % (Auto) [place] % (Auto) Eos % (Auto) Baso % (Auto) Immature Gran # (Auto) Neut # (Auto) Lymph # (Auto) [place] # (Auto) Eos # (Auto) Baso # (Auto) PT INR Sodium 136 Potassium 3.6 Chloride 103 Carbon Dioxide 22 Anion Gap 11.0 BUN 19 H Creatinine 1.41 H Est Cr Clr Drug Dosing 93.7 Est GFR ( Amer) 69.7 Est GFR (Non-Af Amer) 60.2 BUN/Creatinine Ratio 13.3 Glucose 278 H POC Glucose 274 H Estimat Average Glucose Hemoglobin A1c Lactate Calcium 9.0 Total Bilirubin 0.9 AST 14 L ALT 32 Alkaline Phosphatase 125 H Total Protein 7.8 Albumin 3.5 Globulin 4.3 H Albumin/Globulin Ratio 0.8 L Lipase 48 L Urine Color Dark Yellow Urine Appearance Turbid A Urine pH 5.0 Ur Specific [place] 1.040 H Urine Protein 1+ H Urine Glucose (UA) 2+ H Urine Ketones 2+ H Urine Blood 3+ H Urine Nitrite Positive A Urine Bilirubin 1+ H Urine Urobilinogen Negative Ur Leukocyte Esterase 2+ H Urine WBC (Auto) >30 H Urine RBC (Auto) >30 H U Hyaline Cast (Auto) 1-5 U Epithel Cells (Auto) >30 H Urine Bacteria (Auto) 1+ H Urine Yeast Not Reportable 05/05/19 05/05/19 05/06/19 22:51 22:51 04:30 WBC RBC Hgb Hct MCV MCH MCHC RDW Std Deviation RDW Coeff of [place] Plt Count MPV Immature Gran % (Auto) Neut % (Auto) Lymph % (Auto) [place] % (Auto) Eos % (Auto) Baso % (Auto) Immature Gran # (Auto) Neut # (Auto) Lymph # (Auto) [place] # (Auto) Eos # (Auto) Baso # (Auto) PT INR Sodium 137 Potassium 3.9 Chloride 105 Carbon Dioxide 21 Anion Gap 10.0 BUN 15 Creatinine 1.21 Est Cr Clr Drug Dosing 109.2 Est GFR ( Amer) 83.9 Est GFR (Non-Af Amer) 72.4 BUN/Creatinine Ratio 12.3 Glucose 297 H POC Glucose 284 H Estimat Average Glucose Hemoglobin A1c Lactate 3.0 H* Calcium 8.3 L Total Bilirubin AST ALT Alkaline Phosphatase Total Protein Albumin Globulin Albumin/Globulin Ratio Lipase Urine Color Urine Appearance Urine pH Ur Specific [place] Urine Protein Urine Glucose (UA) Urine Ketones Urine Blood Urine Nitrite Urine Bilirubin Urine Urobilinogen Ur Leukocyte Esterase Urine WBC (Auto) Urine RBC (Auto) U Hyaline Cast (Auto) U Epithel Cells (Auto) Urine Bacteria (Auto) Urine Yeast 05/06/19 05/06/19 05/06/19 05:58 05:58 05:58 WBC 23.18 H RBC 5.01 Hgb 14.1 Hct 40.9 L MCV 81.6 MCH 28.1 MCHC 34.5 RDW Std Deviation 43.6 RDW Coeff of [place] 14.8 H Plt Count 217 MPV 10.8 H Immature Gran % (Auto) Neut % (Auto) Lymph % (Auto) [place] % (Auto) Eos % (Auto) Baso % (Auto) Immature Gran # (Auto) Neut # (Auto) Lymph # (Auto) [place] # (Auto) Eos # (Auto) Baso # (Auto) PT INR Sodium 135 L Potassium 3.6 Chloride 102 Carbon Dioxide 23 Anion Gap 10.0 BUN 11 Creatinine 0.85 D Est Cr Clr Drug Dosing 155.4 Est GFR ( Amer) 122.8 Est GFR (Non-Af Amer) 106.0 BUN/Creatinine Ratio 12.8 Glucose 300 H POC Glucose Estimat Average Glucose 214 Hemoglobin A1c 9.1 H Lactate Calcium 8.8 Total Bilirubin AST ALT Alkaline Phosphatase Total Protein Albumin Globulin Albumin/Globulin Ratio Lipase Urine Color Urine Appearance Urine pH Ur Specific [place] Urine Protein Urine Glucose (UA) Urine Ketones Urine Blood Urine Nitrite Urine Bilirubin Urine Urobilinogen Ur Leukocyte Esterase Urine WBC (Auto) Urine RBC (Auto) U Hyaline Cast (Auto) U Epithel Cells (Auto) Urine Bacteria (Auto) Urine Yeast 05/06/19 05/06/19 06:03 07:25 WBC RBC Hgb Hct MCV MCH MCHC RDW Std Deviation RDW Coeff of [place] Plt Count MPV Immature Gran % (Auto) Neut % (Auto) Lymph % (Auto) [place] % (Auto) Eos % (Auto) Baso % (Auto) Immature Gran # (Auto) Neut # (Auto) Lymph # (Auto) [place] # (Auto) Eos # (Auto) Baso # (Auto) PT INR Sodium Potassium Chloride Carbon Dioxide Anion Gap BUN Creatinine Est Cr Clr Drug Dosing Est GFR ( Amer) Est GFR (Non-Af Amer) BUN/Creatinine Ratio Glucose POC Glucose 269 H Estimat Average Glucose Hemoglobin A1c Lactate 1.5 Calcium Total Bilirubin AST ALT Alkaline Phosphatase Total Protein Albumin Globulin Albumin/Globulin Ratio Lipase Urine Color Urine Appearance Urine pH Ur Specific [place] Urine Protein Urine Glucose (UA) Urine Ketones Urine Blood Urine Nitrite Urine Bilirubin Urine Urobilinogen Ur Leukocyte Esterase Urine WBC (Auto) Urine RBC (Auto) U Hyaline Cast (Auto) U Epithel Cells (Auto) Urine Bacteria (Auto) Urine Yeast PG Care Time/CCT Total # of Minutes Spent Total Time Spent with Patient: Total time spent is greater than 50% in coordination of care (as documented) at patient's floor/unit and/or counseling patient:
[2019-05-06] MEDS ORDERED: CIPROFLOXACIN IV SCH (10:00)
[2019-05-06] MEDS: PIPERACILLIN/TAZOBACTAM 4.5 GM in DEXTROSE 5% 100 ML IV SCH ×2 (14:30→22:50)
--- NOTE | 2019-05-06 15:09 | Hospitalist Progress Note ---
Date of Service May 06, 2019 Assessment & Plan (1) Sepsis: Meets SIRS Possible Source:Complicated UTI Obstructive uropathy S/P cystoscopy and left ureteral stent placement POD #1 Blood Cx: Pending Urine culture: No growth to date Appreciate urology input Lactate levels normalized Continue IV fluids, IV antibiotics Day #2 Continue Flomax, Pyridium as needed Plan for outpatient stone management. (2) Urinary tract infection: Management as above (3) Left ureteral stone: Outpatient CT prior to admission demonstrated proximal left ureteral stone with hydronephrosis. S/P stent placement Management as above (4) Hypertension: Continue felodipine, losartan (5) Sleep apnea: Continue CPAP Qhs (6) Diabetes mellitus type 2 in obese: Hb A1C: 9.1 Hold oral agents. Continue Basal/bolus insulin per protocol. Monitor BGs (7) Morbid obesity: BMI 54. Dietary changes. (8) Dyslipidemia: Continue atorvastatin. (9) DVT prophylaxis: SCDs Re: Hematuria Ambulate. (10) Discharge planning issues: Expected discharge home in stable Family Medicine follow-up with Dr. Marin. Urology follow-up with Dr. Ojeda. Subjective Patient is seen and examined at bedside Complaints of mild flank pain Dysuria, hematuria improving Denies any chest pain, shortness of breath, dizziness, nausea, abdominal pain Offers no other complaints Review of Systems Review of Systems: All systems reviewed & are unremarkable except as noted in HPI & below Physical Exam Physical Exam: Physical Exam: Vitals signs as noted above General Appearance:Obese, no apparent distress Head: normocephalic, Atraumatic Eyes: normal inspection, EOMI Neck: supple, Trachea midline Respiratory/Chest: Normal breath sounds, CTA Cardiovascular: S1, S2, No murmur, +Tachycardia Abdomen/GI:Soft, Non tender, Bowel sounds present, Mild Left CVA tender Extremities/Musculoskelatal:normal inspection, no edema, Chronic venous stasis changes Neurologic/Psych:AAOX3, grossly no focal neurological deficits Skin: normal color, warm Results & Data Vital Signs (Past 12 Hours) Vital Signs Temp Pulse Pulse Resp BP Pulse Ox 05/06/19 14:19 36.3 C L 105 H 20 139/83 94 05/06/19 11:38 37 C 100 H 18 136/80 95 05/06/19 07:36 36.9 C 100 H 20 156/92 H 93 05/06/19 04:06 36.6 C 102 H 18 145/99 H 95 Laboratory Results Short CBC 05/05/19 05/06/19 Range/Units 16:49 05:58 WBC 21.95 H 23.18 H (4.8-10.8) K/uL Hgb 14.9 14.1 (14.0-18.0) g/dL Hct 42.0 40.9 L (42-52) % Plt Count 231 217 (130-400) K/uL BMP 05/05/19 05/05/19 05/06/19 16:49 22:51 05:58 Sodium 136 137 135 L Potassium 3.6 3.9 3.6 Chloride 103 105 102 Carbon Dioxide 22 21 23 BUN 19 H 15 11 Creatinine 1.41 H 1.21 0.85 D Glucose 278 H 297 H 300 H Calcium 9.0 8.3 L 8.8 Liver Function 05/05/19 Range/Units 16:49 Total Bilirubin 0.9 (0.2-1) mg/dl AST 14 L (15-37) U/L ALT 32 (12-78) U/L Alkaline Phosphatase 125 H (45-117) U/L Albumin 3.5 (3.4-5.0) gm/dl Urine 05/05/19 Range/Units 18:25 Urine Color Dark Yellow Urine Appearance Turbid A (Clear) Urine pH 5.0 (4.5-7.5) Ur Specific [place] 1.040 H (1.000-1.030) Urine Protein 1+ H (Negative) Urine Glucose (UA) 2+ H (Negative) (1) Sepsis Acute renal failure type: unspecified Sepsis acute organ dysfunction status: with acute organ dysfunction Sepsis type: sepsis due to unspecified organism Severe sepsis acute organ dysfunction type: acute renal failure Severe sepsis shock status: without septic shock Qualified Code(s): A41.9 - Sepsis, unspecified organism; R65.20 - Severe sepsis without septic shock; N17.9 - Acute kidney failure, unspecified
[2019-05-07] MEDS: PIPERACILLIN/TAZOBACTAM 4.5 GM in DEXTROSE 5% 100 ML IV SCH ×2 (06:02→14:33)
[2019-05-07 06:06] LABS: Basophils # (auto) 0.02 K/uL (0-0.2); Basophils % (auto) 0.2 %; Eosinophils # (auto) 0.07 K/uL (0-0.5); Eosinophils % (auto) 0.7 %; Hematocrit (blood only) 43.8 % (42-52); Hemoglobin 15.1 g/dL (14.0-18.0); Immature Granulocytes # (auto) 0.03 K/uL (0.00-0.02); Immature Granulocytes % (auto) 0.3 %; Lymphocytes # (auto) 0.71 K/uL (1.2-3.4); Lymphocytes % (auto) 7.5 %; Mean Corpuscular Hgb Conc 34.5 g/dL (32-36); Mean Corpuscular Volume 81.1 fL (80-100); Mean Platelet Volume 10.7 fL (7.4-10.4); Monocytes # (auto) 0.71 K/uL (0.11-0.59); Monocytes % (auto) 7.5 %; Neutrophils # (auto) 7.98 K/uL (1.4-6.5); Neutrophils % (auto) 83.8 %; Platelet Count 203 K/uL (130-400); RDW Coefficient of Variation 14.7 % (11.5-14.5); RDW Standard Deviation 43.1 fL (36.4-46.3); White Blood Count 9.52 K/uL (4.8-10.8)
[2019-05-07 06:32] LABS: Calcium 8.8 mg/dl (8.5-10.1); Creatinine Clr Calc Pharmacy 169.5 ml/min; Est GFR (African American) 122.2; Est GFR (Non-African American) 105.5; Magnesium 1.8 mg/dl (1.8-2.4); Potassium 3.7 mmol/L (3.5-5.1)
[2019-05-07] MEDS: TAMSULOSIN HCL 0.4 MG CAP PO SCH (08:41)
[2019-05-07] MEDS: ATORVASTATIN 10 MG TAB PO SCH (08:41)
[2019-05-07] MEDS: LOSARTAN POTASSIUM 50 MG TAB PO SCH (08:41)
[2019-05-07] MEDS: FELODIPINE 5 MG TABCR PO SCH (08:42)
[2019-05-07] MEDS: INSULIN GLARGINE SOLOSTAR 100 UNITS/ML 3 ML PEN SC SCH ×2 (08:44→20:22)
[2019-05-07] MEDS: INSULIN ASPART 100 UNITS/ML 3 ML PEN SC SCH ×4 (08:44→20:27)
[2019-05-07] MEDS: LACTATED RINGER'S 1,000 ML IV SCH (08:52)
--- NOTE | 2019-05-07 10:32 | Urology Progress Note ---
Date of Service May 07, 2019 Assessment & Plan (1) Urinary tract infection: 43 YO male with obstructing left stone, UTI, POD #2 s/p cystoscopy, left ureteral stent insertion. Clinically progressing appropriately. Recommend conversion to 2 weeks PO antibiotic therapy. Recommend discharged with Tamsulosin QHS and Pyridium PRN for sent discomfort. Outpatient URO follow up has been arranged. Thanks for allowing us to participate in the inpatient care of Mr. Lim. Please contact our service if we can assist further during hospitalization. (2) Left ureteral stone: Subjective 43 YO male with obstructing left stone, UTI, POD #2 s/p cystoscopy, left ureteral stent insertion. Patient reports feeling okay this morning. Fevers, chills have resolved. Reports some left flank pain, dysuria, intermittent hematuria - consistent with stent discomfort. Controlled with supportive medication. Continues to void spontaneously, feels that he empties bladder completely. UC&S pending. Review of Systems Review of Systems: Per HPI. Physical Exam Physical Exam: NAD +obese. CV: no edema Resp: effort normal +cpap Abd nondistended. A&Ox3, appropriate affect. Results & Data Vital Signs (Past 12 Hours) Vital Signs Temp Pulse Pulse Resp BP Pulse Ox 05/07/19 07:45 153/90 H 05/07/19 07:25 101 H 05/07/19 04:29 37 C 117 H 18 157/88 H 94 05/06/19 23:46 90 05/06/19 23:05 36.9 C 106 H 18 168/83 H 96
[2019-05-07] MEDS: ACETAMINOPHEN 325 MG TAB PO PRN ×2 (14:38→21:10)
--- NOTE | 2019-05-07 15:32 | Hospitalist Progress Note ---
Date of Service May 07, 2019 Assessment & Plan (1) Sepsis: Criteria for sepsis met on admission: Presented with fever, tachycardia, leukocytosis WBC more than 24 k, lactic acid elevated>3met Possible Source:Complicated UTI secondary to obstructed ureteric stone Appreciate input from urology S/P cystoscopy and left ureteral stent placement POD #2 Leukocytosis normalized today, with IV antibiotic and IV fluids Blood Cx: 06/04/2019: 1 bottle positive for gram-negative bacilli(possible contamination) Repeat blood culture ordered today 05/07/2019 Urine culture: No growth to date Appreciate urology input Lactate levels normalized with IV fluids Patient was treated with broad-spectrum antibiotic with IV Zosyn: Day #3 Changed antibiotic to p.o. ciprofloxacin 500 mg twice daily(medically improved, normal white count, normal lactic acid vitals remained stable,) Patient will need 2 weeks of antibiotic treatment Patient will continue Flomax, Pyridium as needed for urinary symptoms, urgency, dysuria Plan for outpatient stone management- (2) Urinary tract infection: Antibiotic changed to p.o. ciprofloxacin, will need at least 10-14 days of treatment (3) Left ureteral stone: Outpatient CT prior to admission demonstrated proximal left ureteral stone with hydronephrosis. Patient seen by [facility] urology team Appreciate input S/P ureteric stent placement postoperative day 2 Patient will be followed at urology clinic as an outpatient for further management of ureteric stone (4) Hypertension: Blood pressure stable Continue felodipine, losartan (5) Sleep apnea: Continue CPAP Qhs (6) Diabetes mellitus type 2 in obese: Hb A1C: 9.1 Hold oral agents. Continue Basal/bolus insulin per protocol. Monitor BGs Oral antidiabetic meds will be resumed on discharge (7) Morbid obesity: BMI 54. Dietary changes. Counseling for lifestyle change, weight reduction (8) Dyslipidemia: Continue atorvastatin. (9) DVT prophylaxis: SCDs Re: Hematuria Ambulate. (10) Discharge planning issues: Expected to be discharged home possible tomorrow Family Medicine follow-up with Dr. Marin. Urology follow-up with Dr. Ojeda. Subjective Patient reports feeling okay this morning. no complain of Fevers, chills have resolved. Reports some left flank pain, dysuria, intermittent hematuria - consistent with stent discomfort. Controlled with supportive medication. no gross hematuria Review of Systems Review of Systems: All systems reviewed & are unremarkable except as noted in HPI & below Physical Exam Constitutional: WD/WN, vitals as above + morbidly obese; no acute distress Eyes: PERRL, conjunctivae normal, anicteric sclerae ENMT: external ear and nose normal, oropharynx normal Neck: trachea midline, no thyromegaly Respiratory: normal respiratory effort, lungs clear to auscultation Cardiovascular: RRR, no murmur, no edema Gastrointestinal (Abdomen): normal bowel sounds, soft, nontender, no hepatosplenomegaly Musculoskeletal: no cyanosis or clubbing, extremities motor strength 5/5 Skin: no rashes, warm and dry Neurologic: PERRL, EOMI, accommodation nl, no face palsy, no dysarthria Psychiatric: A+Ox3, euthymic affect Results & Data Vital Signs (Past 12 Hours) Vital Signs Temp Pulse Pulse Resp BP Pulse Ox 05/07/19 12:00 37.2 C 104 H 16 158/85 H 93 05/07/19 07:45 37.3 C 105 H 18 153/90 H 93 05/07/19 07:25 101 H 05/07/19 04:29 37 C 117 H 18 157/88 H 94 (1) Sepsis Acute renal failure type: unspecified Sepsis acute organ dysfunction status: with acute organ dysfunction Sepsis type: sepsis due to unspecified organism Severe sepsis acute organ dysfunction type: acute renal failure Severe sepsis shock status: without septic shock Qualified Code(s): A41.9 - Sepsis, unspecified organism; R65.20 - Severe sepsis without septic shock; N17.9 - Acute kidney failure, unspecified
[2019-05-07] MEDS ORDERED: EPINEPHRINE ADULT AUTO-INJECT 0.3 MG SYR IM PRN (15:52)
[2019-05-07] MEDS ORDERED: KETOROLAC TROMETHAMINE 15 MG/ML VIAL IV PRN (15:52)
[2019-05-07] MEDS: CIPROFLOXACIN 500 MG TAB PO SCH (20:20)
[2019-05-08] MEDS: ACETAMINOPHEN 325 MG TAB PO PRN (08:36)
[2019-05-08] MEDS: CIPROFLOXACIN 500 MG TAB PO SCH (08:37)
[2019-05-08] MEDS: LOSARTAN POTASSIUM 50 MG TAB PO SCH (08:38)
[2019-05-08] MEDS: TAMSULOSIN HCL 0.4 MG CAP PO SCH (08:38)
[2019-05-08] MEDS: ATORVASTATIN 10 MG TAB PO SCH (08:38)
[2019-05-08] MEDS: FELODIPINE 5 MG TABCR PO SCH (08:38)
[2019-05-08] MEDS: INSULIN GLARGINE SOLOSTAR 100 UNITS/ML 3 ML PEN SC SCH (08:40)
[2019-05-08] MEDS: INSULIN ASPART 100 UNITS/ML 3 ML PEN SC SCH ×2 (08:43→12:26)
[2019-05-08] MEDS ORDERED: PIOGLITAZONE HCL 15 MG TAB PO SCH (09:00)
--- NOTE | 2019-05-08 16:03 | Discharge Summary ---
Date of Service May 08, 2019 Admission HPI Per Admitting Provider 43-year-old male followed by Dr. Marin for Family Medicine. History of hypertension, sleep apnea, diabetes, and other problems noted below. Developed left flank pain around 8:00 this morning. Flank pain was associate with nausea, but no emesis. Urine was dark, but not grossly bloody. No dysuria. Experienced malaise, fever, chills, sweats. Was seen in clinic this morning. Renal colic was suspected. Patient was prescribed trimethoprim/sulfamethoxazole, tamsulosin. A CT of the abdomen and pelvis was ordered. CT was performed at the [facility] and demonstrated a 5 x 8 mm left proximal ureteral calculus with mild hydronephrosis. Patient was notified and referred to the Emergency Department for further evaluation and management. Labs and blood cultures were obtained in the ED and patient was given IV fluids and started on IV cefepime. Urology consultation with Dr. Ojeda was obtained. Patient was taken to the operating room where a left ureteral stent was placed. Taken to ICU for postoperative recovery. Still experiencing severe left flank/abdominal pain; notes gross hematuria. Principal Diagnosis URETERAL CALCULUS,SEPSIS Discharge Exam Constitutional WD/WN, vitals as above + morbidly obese; no acute distress Eyes PERRL, conjunctivae normal, anicteric sclerae ENMT external ear and nose normal, oropharynx normal Neck trachea midline, no thyromegaly Respiratory normal respiratory effort, lungs clear to auscultation Cardiovascular RRR, no murmur, no edema Gastrointestinal (Abdomen) normal bowel sounds, soft, nontender, no hepatosplenomegaly Musculoskeletal no cyanosis or clubbing, extremities motor strength 5/5 Skin no rashes, warm and dry Neurologic PERRL, EOMI, accommodation nl, no face palsy, no dysarthria Psychiatric A+Ox3, euthymic affect Discharge Data Allergies Allergy/AdvReac Type Severity Reaction Status Date / Time MORGAN Inhibitors AdvReac Intermediate swelling Verified 05/05/19 17:52 to face Consultations 05/05/19 17:38 ED Decision to Admit Stat 05/06/19 10:40 Consult Urology Routine Procedures Performed Operation Date: 05/05/19 19:30 Actual Procedures p Cystoscopy, Left Retrograde Pyelogram, Left Ureteral Stent Insertion(Left) - Puneet Ojeda MD Ordered Studies 05/05/19 19:06 FL retrograde includes kub Routine Hospital Course (1) Sepsis: Met criteria for sepsis on admission: Presented with fever, tachycardia, leukocytosis WBC more than 24 k, lactic acid elevated>3 Symptoms has called resolved Possible Source:Complicated UTI secondary to obstructed ureteric stone Appreciate input from urology S/P cystoscopy and left ureteral stent placement POD #3 Leukocytosis normalized Blood Cx: 06/04/2019: 1 bottle positive for gram-negative bacilli(possible contamination) Repeat blood culture ordered today 05/07/2019 Urine culture: No growth to date Appreciate urology input Changed antibiotic to p.o. ciprofloxacin 500 mg twice daily(medically improved, normal white count, normal lactic acid vitals remained stable,) Patient will need 2 weeks of antibiotic treatment Patient will continue Flomax, Pyridium as needed for urinary symptoms, urgency, dysuria Patient will be seen at urology office in 1 to 2 weeks for ureteric stone management Headache no flank pain no fever or chills, no dysuria, stable to be discharged home (2) Urinary tract infection: Antibiotic changed to p.o. ciprofloxacin, will need at least 2 weeks (3) Left ureteral stone: Outpatient CT prior to admission demonstrated proximal left ureteral stone with hydronephrosis. Patient seen by [facility] urology team Appreciate input S/P ureteric stent placement Recovering well postoperatively, tolerating diet no nausea vomiting no flank pain stable to be discharged home today Patient will be followed at urology clinic as an outpatient for further management of ureteric stone (4) Hypertension: Blood pressure stable Continue felodipine, losartan (5) Sleep apnea: Continue CPAP Qhs (6) Diabetes mellitus type 2 in obese: Hb A1C: 9.1 Oral antidiabetic meds resumed on discharge Treated with basal Lantus and insulin sliding scale while inpatient (7) Morbid obesity: BMI 54. Dietary changes. Counseling for lifestyle change, weight reduction provided (8) Dyslipidemia: Continue atorvastatin. (9) DVT prophylaxis: SCDs Re: Hematuria Ambulate. (10) Discharge planning issues: Able to be discharged home today Family Medicine follow-up with Dr. Marin. Urology follow-up with Dr. Ojeda. Total Time Total Time Spent Total Time Spent (In Minutes): Approximately 40 minutes Total Time Includes: Examination of the Patient, Discharge Planning and Medication Reconciliation Discharge Plan Discharge Items Patient Disposition: Home - Self-Care Reason For Visit: URETERAL CALCULUS,SEPSIS Discharge Diagnosis: Severe sepsis due to left sided kidney stone, status post ureteric stent placement Activity: Resume your previous activity Non-emergency contact: Primary Care Provider Call non-emergency contact if: you have any medication questions Follow-up/Referrals: Puneet Ojeda MD [Physician] - (In 1 to 2 weeks office will call with appointment) Sheron Marin MD [Primary Care Provider] - 05/12/19 5:25 pm Diet: Regular Addtl Attending Provider Instructions: Drink plenty of fluids Please notify your family physician, or return to ER if you develop severe left-sided pain, fever chills, Hospital follow-up with Dr. Dario Marin on 05/12/2019 at 5:25 PM at [facility] [place] Follow-up with urology: With [facility] physician group as per schedule Your discharge with antibiotic: P.o. ciprofloxacin 500 mg 1 tablet twice daily for 2 weeks Please complete antibiotic as directed Please take [id number] probiotics, lactobacillus for 2 weeks to prevent antibiotic induced diarrhea, GI tract infection Do not take aspirin for the next 2 weeks, to prevent bleeding in your urine while having ureteric stent Pending Studies at Discharge: No Stand-Alone Forms: [facility], Work/School Release (Inpt) Medications and DC Order Prescriptions: New ciprofloxacin HCl 500 mg Tablet 500 mg PO BID 14 Days Qty: 28 RF: 0 phenazopyridine [Pyridium] 200 mg Tablet 200 mg PO TID PRN (Reason: pain during urination) 10 Days Qty: 30 RF: 0 Continued metformin 500 mg tablet extended release 24 hr 2,000 mg PO DAILY RF: 0 ketorolac 10 mg tablet 10 mg PO Q6H PRN (Reason: Pain) RF: 0 tamsulosin 0.4 mg capsule 0.4 mg PO DAILY RF: 0 glimepiride 4 mg tablet 8 mg PO DAILY RF: 0 felodipine 10 mg tablet extended release 24 hr 10 mg PO DAILY RF: 0 losartan 50 mg tablet 50 mg PO DAILY RF: 0 atorvastatin 10 mg tablet 10 mg PO DAILY RF: 0 pioglitazone 45 mg tablet 45 mg PO DAILY RF: 0 epinephrine [EpiPen 2-Puneet] 0.3 mg/0.3 mL Auto-Injector 0.3 mg IM Q3H PRN (Reason: Allergic Reaction) RF: 0 Discontinued sulfamethoxazole-trimethoprim 800-160 mg tablet 1 tab PO BID RF: 0 aspirin [Aspirin Low Dose] 81 mg Tablet,Delayed Release (Dr/Ec) 81 mg PO DAILY RF: 0 Discharge Orders: Discharge Order (Routine); Ordered 05/08/19 Ordered By: Domonique Kwok/Other Patient Handouts: Diabetes Machinery Mechanic Complications, Diabetes Resources, Diabetes Type 2 Coping, Diabetes Healthy Meals, Diabetes Carbs, Diabetes Exercise Benefits, Diabetes Exercise Get Started, Diabetes Activity Tips, Diabetes Manage A1C Test Admission Data Admit Date/Time: 05/05/19 22:21 Attending Provider: Domonique Doyle Admit Provider: Jordon Chaudhry Primary Care Provider: Sheron Marin Other Providers: Bradly Juarez ; Puneet Ojeda I. Other Interventions: Discharge Summary Assessment (RN) Last Done: 05/08/19 14:34 DC Date/Time DO NOT enter until pt leaves facility: 05/08/19 14:58
== END 2019-05-08 14:58 | disposition home or self-care (01) | DRG 854 ==
LOC: ED 15:41 → ASU 19:37 → 2E 22:21 → SUATTDRO 22:21 → 2N 05-06 10:45

== ENCOUNTER 2019-08-07 06:40 | Inpatient (IN) ==
[2019-08-07] MEDS ORDERED: PROMETHAZINE HCL 6.25 MG in SODIUM CHLORIDE 0.9% 50 ML IV STA (07:01)
[2019-08-07] MEDS ORDERED: KETOROLAC TROMETHAMINE 15 MG/ML VIAL IV STA (07:01)
[2019-08-07] MEDS ORDERED: ONDANSETRON INJ 2 MG/ML 2 ML VIAL IV STA (07:01)
[2019-08-07] MEDS ORDERED: MoRPHine SULFATE 2 MG/ML CARP IV STA (07:03)
[2019-08-07] MEDS ORDERED: SODIUM CHLORIDE 0.9% 1000ML 1,000 ML IV SCH (07:15)
--- NOTE | 2019-08-07 07:52 | Emergency Department Note ---
Entered by Danie Kidd acting as a scribe for Devon Hernandez MD History of Present Illness General Chief complaint: Abdominal Pain Stated complaint: ABD PAIN Time Seen by Provider: 08/07/19 06:53 Source: patient History of Present Illness Provider complaint: Abdominal pain Onset (ago): hour(s) (This morning) Location: abdomen Pain Consistency: + constant and + intermittent Maximum Pain Intensity: 8 Current Pain Intensity: 8 Associated symptoms: + nausea/vomiting and + other (Diarrhea); no cough and no fever/chills The patient is a 44 year old male who presents to the Emergency Room with complaints of abdominal pain that has been intermittent for months but became worse and constant this morning. The patient rates the pain as an 8/10 and notes it is located at the site of a hernia. The patient states he has had the hernia for years but he believes it has gotten larger. He also notes that the pain feels deeper than the hernia. The patient adds that he has had diarrhea for the past 2 days and this morning he woke up with nausea resulting in 2 episodes of emesis. The patient denies any fevers, coughs or congestions. The patient has no pain radiating into his groin or testicles. The patient has a history of diabetes and hypertension and has taken all of his medications this morning. Home Medications Home Medications Medication Instructions Recorded Confirmed Type atorvastatin [Lipitor] 10 mg PO QAM 05/05/19 08/07/19 History epinephrine [EpiPen 2-Puneet] 0.3 mg IM Q3H PRN 05/05/19 08/07/19 History felodipine 10 mg PO QAM 05/05/19 08/07/19 History glimepiride [Amaryl] 8 mg PO QAM 05/05/19 08/07/19 History losartan [Cozaar] 50 mg PO QAM 05/05/19 08/07/19 History metformin [Glucophage XR] 2,000 mg PO QAM 05/05/19 08/07/19 History pioglitazone [Actos] 45 mg PO QAM 05/05/19 08/07/19 History aspirin 81 mg PO QAM 08/07/19 08/07/19 History cholecalciferol (vitamin D3) 2,000 unit PO QAM 08/07/19 08/07/19 History [Vitamin D3] humkogxn-fam-mpvts-vit K-lycop 1 tab PO QAM 08/07/19 08/07/19 History [One-A-Day Men's Multivitamin] potassium chloride 10 meq PO BID 08/07/19 08/07/19 History Allergies Allergy/AdvReac Type Severity Reaction Status Date / Time MORGAN Inhibitors Allergy Intermediate SWELLING Verified 08/07/19 09:20 TO LIPS Past Med/Surg History Medical History Acute UTI TREATED RECENTLY FOR (ALL FINISHED ANTIBIOTIC) Diabetes mellitus, type 2 Hypertension (Chronic) Left ureteral stone Morbid obesity (Chronic) Osteoarthritis Sleep apnea (Chronic) CPAP Surgical History History of anesthesia reaction RECENT CYSTOSCOPY AT [facility], WOKE UP IN MIDDLE OF SURGERY. History of cystoscopy History of surgery ATTEMPTED TONSILLECTOMY, PT GIVEN ANESTHESIA BUT SURGEON NEVER DID SURGERY D/T "MOUTH TOO SMALL". [place] teeth removed Family History Father Coronary heart disease Hypertension Grandfather (Maternal) Family history of diabetes mellitus Social History Preferred Language: Yakut Communication Ability: Effective Compliance Analyst Required: No Beliefs That Will Affect Care: None Current Living Situation: Alone Other Information That Helps Us Care for You: No Feels Safe at Home: Yes Safety Concerns: Feels Safe At This Time Smoking Status: Never smoker Tobacco Type: smokeless tobacco ; Do You Dip or Chew Tobacco: No ; Second Hand Exposure: No ; Tobacco Cessation Education Requested by Patient: No Hx Alcohol Use: Yes Alcohol type: beer Alcohol Intake Frequency: Holidays/Special Occasions Hx Substance Use: No Review of Systems See HPI for pertinent positives & negatives. and A total of 10 systems reviewed and were otherwise negative Physical Exam Vital Signs Vital Signs - 24 hr 08/07/19 06:41 08/07/19 07:40 08/07/19 08:40 Temperature 36.4 C L Temperature Source Oral Pulse Rate 106 H Pulse Rate [Apical] 92 H Respiratory Rate 20 18 Blood Pressure 176/100 H Blood Pressure [Left Arm] 182/94 H Blood Pressure Mean 125 Blood Pressure Mean [Left Arm] 123 Blood Pressure Position Sitting Pulse Oximetry 97 97 96 Oxygen Delivery Method Room Air Room Air Room Air Sepsis Recent Fever Within 48 Hours No Sepsis New/Unexplained Change in Mental Status No Sepsis Action Taken by Nursing No Action Required 08/07/19 10:00 Temperature Temperature Source Pulse Rate Pulse Rate [Apical] 94 H Respiratory Rate 18 Blood Pressure Blood Pressure [Left Arm] 167/104 H Blood Pressure Mean Blood Pressure Mean [Left Arm] 125 Blood Pressure Position Pulse Oximetry 96 Oxygen Delivery Method Room Air Sepsis Recent Fever Within 48 Hours Sepsis New/Unexplained Change in Mental Status Sepsis Action Taken by Nursing GENERAL: Patient is in moderate distress from pain. HEENT: No acute trauma, normocephalic atraumatic, mucous membranes moist, no nasal congestion, no scleral icterus. NECK: No stridor, no adenopathy, no meningismus, trachea is midline. LUNGS: Clear to auscultation bilaterally, no wheeze, no rhonchi, breath sounds equal. HEART: Tachycardic rate, regular rhythm and no murmurs. ABDOMEN: Soft, non-distended, 4-5cm umbilical hernia which is partially reducible and somewhat tender to touch. No peritonitis. Bowel sounds positive. EXTREMITIES: Mild bilateral pedal edema. No cyanosis, full range of motion of all the joints without pain or difficulty, no signs for acute trauma. NEUROLOGIC: Oriented x 3, no acute motor or sensory deficits, no focal weakness. SKIN: No rash, no jaundice, no diaphoresis. Course Course 0657: Past medical records reviewed. The patient was evaluated in room B07, and a complete history and physical examination were performed. 0905: I reevaluated the patient and he is still experiencing pain so he would like more medication. 0948: I updated the patient with test results and we discussed the treatment plan. Given his current symptoms and past medical history we both agreed that staying in the hospital would be the best option. 0952: I discussed the patient's case with Andra RODRIGUEZ who is working under Dr. Santosh Christensen. They agreed to accept the patient for further evaluation. Consultations Consultation #1: I discussed the patient's case with nAdra RODRIGUEZ who is working under Dr. [place] [facility]. They agreed to accept the patient for further evaluation. Time: 09:52 Administered Medications Potassium Chloride/Sodium Chloride (Normal Saline W/20 Meq Kcl) 20 meq in 1,000 mls @ 100 mls/hr IV .Q10H CHEL Stop: 08/07/19 21:59 Last Admin: 08/07/19 12:16 Dose: 100 mls/hr Documented by: [id number] Insulin Aspart (Novolog Flexpen) 0 units SC ACHS CHEL Stop: 09/06/19 12:14 Last Admin: 08/07/19 12:45 Dose: 3 units Documented by: [id number] Cosigned by: [id number] Morphine Sulfate (Morphine Sulfate) 4 mg IV Q3H PRN PRN Reason: Pain Stop: 08/21/19 11:43 Last Admin: 08/07/19 12:15 Dose: 4 mg Documented by: [id number] Discontinued Medications Sodium Chloride (Nss 1000ml) 1,000 mls @ 999 mls/hr IV .Q1H1M CHEL Stop: 08/07/19 08:15 Last Infusion: 08/07/19 08:49 Dose: 0 mls/hr Documented by: [id number] Admin: 08/07/19 07:47 Dose: 999 mls/hr Documented by: [id number] Promethazine HCl 6.25 mg/ (Sodium Chloride) 50.25 mls @ 201 mls/hr IV NOW STA Stop: 08/07/19 07:15 Last Admin: 08/07/19 08:12 Dose: Not Given Documented by: [id number] Magnesium Sulfate/Dextrose (Magnesium Sulfate / D5w) 1 gm in 100 mls @ 100 mls/hr IV ONE ONE Stop: 08/07/19 09:45 Last Infusion: 08/07/19 09:56 Dose: 0 mls/hr Documented by: [id number] Admin: 08/07/19 08:56 Dose: 100 mls/hr Documented by: [id number] Insulin Human Regular (Novolin R U-100 Per Unit) 10 units IV NOW STA Stop: 08/07/19 08:33 Last Admin: 08/07/19 08:56 Dose: 10 units Documented by: [id number] Cosigned by: [id number] Ioversol (Optiray 320 125ml) 120 ml IV ONCE PRN PRN Reason: Interaction Checking Stop: 08/11/19 08:35 Last Admin: 08/07/19 08:37 Dose: 120 ml Documented by: [id number] Ketorolac Tromethamine (Toradol) 15 mg IV NOW STA Stop: 08/07/19 07:02 Last Admin: 08/07/19 07:47 Dose: 15 mg Documented by: [id number] Losartan Potassium (Cozaar) 50 mg PO ONE ONE Stop: 08/07/19 13:09 Last Admin: 08/07/19 14:22 Dose: 50 mg Documented by: [id number] Morphine Sulfate (Morphine Sulfate) 2 mg IV NOW STA Stop: 08/07/19 07:04 Last Admin: 08/07/19 07:47 Dose: 2 mg Documented by: [id number] Morphine Sulfate (Morphine Sulfate) 4 mg IV NOW STA Stop: 08/07/19 09:10 Last Admin: 08/07/19 09:30 Dose: 4 mg Documented by: [id number] Morphine Sulfate (Morphine Sulfate) 3 mg IV NOW STA Stop: 08/07/19 10:31 Last Admin: 08/07/19 11:06 Dose: 3 mg Documented by: [id number] Ondansetron HCl (Zofran) 4 mg IV NOW STA Stop: 08/07/19 07:02 Last Admin: 08/07/19 07:47 Dose: 4 mg Documented by: [id number] Promethazine HCl (Phenergan) Confirm Administered Dose 6.25 mg IV .STK-MED ONE Stop: 08/07/19 08:08 Last Admin: 08/07/19 08:12 Dose: 6.25 mg Documented by: [id number] Medical Decision Making Differential Diagnosis Differential Diagnosis includes: Incarcerated hernia, bowel obstruction, diverticulitis, colitis, food borne illness, viral illness, dehydration, cardiac ischemia, electrolyte imbalance, UTI, pancreatitis, renal colic, and biliary colic, amongst others. Medical Records Attestation: I reviewed the patient's medical records. Home Medications Current Medication List: was personally reviewed by me Laboratory Data Attestation: I reviewed the patient's lab results. Result diagrams: 08/07/19 07:30 08/07/19 07:30 Lab Results 08/07/19 08/07/19 08/07/19 Range/Units 07:30 07:30 07:52 WBC 9.61 (4.8-10.8) K/uL RBC 5.79 (4.7-6.1) M/uL Hgb 16.5 (14.0-18.0) g/dL Hct 47.1 (42-52) % MCV 81.3 (80-100) fL MCH 28.5 (25-34) pg MCHC 35.0 (32-36) g/dL RDW Std Deviation 41.3 (36.4-46.3) fL RDW Coeff of Celso 13.9 (11.5-14.5) % Plt Count 249 (130-400) K/uL MPV 10.8 H (7.4-10.4) fL Immature Gran % (Auto) 0.5 % Neut % (Auto) 75.8 % Lymph % (Auto) 15.0 % Jackson % (Auto) 6.7 % Eos % (Auto) 1.8 % Baso % (Auto) 0.2 % Immature Gran # (Auto) 0.05 H (0.00-0.02) K/uL Neut # (Auto) 7.29 H (1.4-6.5) K/uL Lymph # (Auto) 1.44 (1.2-3.4) K/uL Jackson # (Auto) 0.64 H (0.11-0.59) K/uL Eos # (Auto) 0.17 (0-0.5) K/uL Baso # (Auto) 0.02 (0-0.2) K/uL Sodium 135 L (136-145) mmol/L Potassium 3.8 (3.5-5.1) mmol/L Chloride 102 (98-107) mmol/L Carbon Dioxide 25 (21-32) mmol/L Anion Gap 9.0 (3-11) BUN 12 (7-18) mg/dl Creatinine 1.04 (0.6-1.4) mg/dl Est Cr Clr Drug Dosing 134.9 ml/min Est GFR ( Amer) 100.0 Est GFR (Non-Af Amer) 86.3 BUN/Creatinine Ratio 11.3 (10-20) Glucose 326 H* (70-99) mg/dl POC Glucose (70-99) Calcium 9.8 (8.5-10.1) mg/dl Magnesium 1.6 L (1.8-2.4) mg/dl Total Bilirubin 0.6 (0.2-1) mg/dl AST 13 L (15-37) U/L ALT 37 (12-78) U/L Alkaline Phosphatase 155 H (45-117) U/L Troponin I < 0.015 (0-0.045) ng/ml Total Protein 8.7 H (6.4-8.2) gm/dl Albumin 3.7 (3.4-5.0) gm/dl Globulin 5.0 H (2.5-4.0) gm/dl Albumin/Globulin Ratio 0.7 L (0.9-2) Lipase 61 L (73-393) U/L Beta-Hydroxybutyric Acd 5.02 H (0.2-2.81) mg/dl Urine Color Warren Urine Appearance Clear (Clear) Urine pH 5.0 (4.5-7.5) Ur Specific Falls 1.029 (1.000-1.030) Urine Protein Negative (Negative) Urine Glucose (UA) 3+ H (Negative) Urine Ketones Trace H (Negative) Urine Blood 3+ H (Negative) Urine Nitrite Negative (Negative) Urine Bilirubin Negative (Negative) Urine Urobilinogen Negative (Negative) Ur Leukocyte Esterase Negative (Negative) Urine WBC (Auto) 1-5 (0-5) /hpf Urine RBC (Auto) >30 H (0-4) /hpf U Hyaline Cast (Auto) 1-5 (0-5) /lpf U Epithel Cells (Auto) >30 H (0-5) /lpf Urine Bacteria (Auto) Negative (Negative) 08/07/19 Range/Units 09:31 WBC (4.8-10.8) K/uL RBC (4.7-6.1) M/uL Hgb (14.0-18.0) g/dL Hct (42-52) % MCV (80-100) fL MCH (25-34) pg MCHC (32-36) g/dL RDW Std Deviation (36.4-46.3) fL RDW Coeff of Celso (11.5-14.5) % Plt Count (130-400) K/uL MPV (7.4-10.4) fL Immature Gran % (Auto) % Neut % (Auto) % Lymph % (Auto) % Jackson % (Auto) % Eos % (Auto) % Baso % (Auto) % Immature Gran # (Auto) (0.00-0.02) K/uL Neut # (Auto) (1.4-6.5) K/uL Lymph # (Auto) (1.2-3.4) K/uL Jackson # (Auto) (0.11-0.59) K/uL Eos # (Auto) (0-0.5) K/uL Baso # (Auto) (0-0.2) K/uL Sodium (136-145) mmol/L Potassium (3.5-5.1) mmol/L Chloride (98-107) mmol/L Carbon Dioxide (21-32) mmol/L Anion Gap (3-11) BUN (7-18) mg/dl Creatinine (0.6-1.4) mg/dl Est Cr Clr Drug Dosing ml/min Est GFR ( Amer) Est GFR (Non-Af Amer) BUN/Creatinine Ratio (10-20) Glucose (70-99) mg/dl POC Glucose 266 H (70-99) Calcium (8.5-10.1) mg/dl Magnesium (1.8-2.4) mg/dl Total Bilirubin (0.2-1) mg/dl AST (15-37) U/L ALT (12-78) U/L Alkaline Phosphatase (45-117) U/L Troponin I (0-0.045) ng/ml Total Protein (6.4-8.2) gm/dl Albumin (3.4-5.0) gm/dl Globulin (2.5-4.0) gm/dl Albumin/Globulin Ratio (0.9-2) Lipase (73-393) U/L Beta-Hydroxybutyric Acd (0.2-2.81) mg/dl Urine Color Urine Appearance (Clear) Urine pH (4.5-7.5) Ur Specific Falls (1.000-1.030) Urine Protein (Negative) Urine Glucose (UA) (Negative) Urine Ketones (Negative) Urine Blood (Negative) Urine Nitrite (Negative) Urine Bilirubin (Negative) Urine Urobilinogen (Negative) Ur Leukocyte Esterase (Negative) Urine WBC (Auto) (0-5) /hpf Urine RBC (Auto) (0-4) /hpf U Hyaline Cast (Auto) (0-5) /lpf U Epithel Cells (Auto) (0-5) /lpf Urine Bacteria (Auto) (Negative) Imaging Data Radiologist's Impression: Radiology results as stated below per my review and the radiologist's interpretation: ABDOMEN AND PELVIS CT WITH IV CONTRAST CT DOSE: 1962.84 mGy.cm HISTORY: Acute mid abdominal pain midabd pain, umbil hernia TECHNIQUE: Multiaxial CT images of the abdomen and pelvis were performed following the IV administration of 120 cc of Optiray 320, A dose lowering technique was utilized adhering to the principles of ALARA. COMPARISON STUDY: CT abdomen and pelvis 06/03/2019 FINDINGS: Lung bases are generally clear. No pneumatosis or pneumoperitoneum. Coronary arterial calcifications are noted. No pericardial effusion. Hepatic steatosis. Portions of the patient's anatomy outside the [id number] secondary to body habitus. Spleen is enlarged, 15.6 cm. Pancreas, gallbladder and adrenal glands are unremarkable. Right kidney appears unremarkable. Decreased enhancement of the left kidney with perinephric inflammation and mild hydroureteronephrosis secondary to an obstructing 7 x 5 x 6 mm calculus of the proximal left ureter just distal to the ureteropelvic junction at the level of L3-L4. Mild reactive urothelial thickening. Urinary bladder and prostate are unremarkable. Small fat filled left inguinal hernia. No abdominal aortic aneurysm. Retroaortic left renal vein. Unremarkable IVC. Nonspecific mildly prominent bilateral inguinal chain lymph nodes. There is no bowel obstruction or bowel wall thickening. Probable pill fragment within the cecum. Normal appendix. Moderate to large fat filled periumbilical hernia, diastases of 3.8 cm. Degenerative changes are noted about the spine. Bones appear intact. IMPRESSION: 1. Mild left-sided hydroureteronephrosis with delayed enhancement of the left kidney secondary to an obstructing 7 x 5 x 6 mm calculus of the proximal left ureter just distal to the ureteropelvic junction at the level of L3-L4. 2. No bowel obstruction or bowel wall thickening. 3. Normal appendix. 4. Hepatic steatosis. 5. Splenomegaly. 6. Moderate to large fat filled periumbilical hernia. ACT 112: Negative or not required by law. The above report was generated using voice recognition software. It may contain grammatical, syntax or spelling errors. Electronically signed by: Gasper Marte M.D. 08/07/2019 9:00 AM ECG Data Attestation: I personally reviewed and interpreted this ECG as follows: Indication: + abdominal pain Rate (beats per minute): 98 Rhythm: + normal sinus ECG Intervals/blocks: + Normal QT-c (462) ECG ST segments: no ST elevation ECG Findings: no PVCs Blood Pressure Blood Pressure Findings: Elevated blood pressure Blood Pressure Disposition: further management by hospitalist MALLORIE Renteria There is no leukocytosis or concerning anemia. No kidney failure. Glucose was elevated at over 300. Magnesium is low at 1.6. Alk phos was elevated, no other concerning liver enzyme elevation. Lipase was not elevated. Urinalysis showed hematuria, no infection. Abdominal and pelvis CT shows a 7 mm left proximal ureteral stone with hydronephrosis. The umbilical hernia was more chronic in appearance. There was no bowel obstruction. The patient received IV saline, he was given IV insulin because of the higher blood sugar value. Patient received IV Toradol, IV Zofran, IV Phenergan and IV morphine. He was given IV magnesium. He does seem more comfortable. The patient has a large proximal left-sided ureteral stone. He is diabetic and has a high blood sugar. His pain is quite severe. I do not think he is going to pass this stone naturally. Hospitalization was felt warranted. I spoke to the patient and case management. The on-call hospitalist was consulted. Impression & Plan Renal colic, Vomiting, Hyperglycemia, Hypomagnesemia, Central abdominal pain Discharge Plan Visit Data *Final* Discharge Date/Time: 08/07/19 11:13 Chief Complaint: Abdominal Pain Stated Complaint: ABD PAIN ED Provider: Devon Hernandez Discharge Problem: Renal colic, Vomiting, Hyperglycemia, Hypomagnesemia, Central abdominal pain Patient Disposition: Admitted As Inpatient Discharge Instructions Interventions: ED Discharge Assessment Last Done: 08/07/19 11:13 Discharge Problem: Vomiting Qualifiers: Vomiting type: unspecified Vomiting Intractability: non-intractable Nausea presence: with nausea Qualified Code(s): R11.2 - Nausea with vomiting, unspecified The scribe's documentation has been prepared under my direction and personally reviewed by me in its entirety. I confirm that the note above accurately reflects all work, treatment, procedures, and medical decision making performed by me.
[2019-08-07 08:07] LABS: Basophils # (auto) 0.02 K/uL (0-0.2); Basophils % (auto) 0.2 %; Eosinophils # (auto) 0.17 K/uL (0-0.5); Eosinophils % (auto) 1.8 %; Hematocrit (blood only) 47.1 % (42-52); Hemoglobin 16.5 g/dL (14.0-18.0); Immature Granulocytes # (auto) 0.05 K/uL (0.00-0.02); Immature Granulocytes % (auto) 0.5 %; Lymphocytes # (auto) 1.44 K/uL (1.2-3.4); Mean Corpuscular Hemoglobin 28.5 pg (25-34); Mean Corpuscular Volume 81.3 fL (80-100); Mean Platelet Volume 10.8 fL (7.4-10.4); Monocytes # (auto) 0.64 K/uL (0.11-0.59); Monocytes % (auto) 6.7 %; Neutrophils # (auto) 7.29 K/uL (1.4-6.5); Neutrophils % (auto) 75.8 %; Platelet Count 249 K/uL (130-400); RDW Coefficient of Variation 13.9 % (11.5-14.5); RDW Standard Deviation 41.3 fL (36.4-46.3); Red Blood Count 5.79 M/uL (4.7-6.1); White Blood Count 9.61 K/uL (4.8-10.8)
[2019-08-07] MEDS ORDERED: PROMETHAZINE 6.25 MG/50.25 ML NSS IV ONE (08:07)
[2019-08-07 08:08] LABS: Appearance Urine Clear (Clear); Bacteria Urine Automated Negative (Negative); Bilirubin Urine Negative (Negative); Blood Urine 3+ (Negative); Color Urine Orange; Epithelial Cell Urine Auto >30 /lpf (0-5); Glucose Urine UA 3+ (Negative); Ketones Urine Trace (Negative); Leukocyte Esterase Urine Negative (Negative); Nitrite Urine Negative (Negative); Protein Urine Negative (Negative); RBC Urine Automated >30 /hpf (0-4); Specific Gravity Urine 1.029 (1.000-1.030); Urobilinogen Urine Negative (Negative)
[2019-08-07 08:28] LABS: Alanine Aminotransferase 37 U/L (12-78); Albumin Level 3.7 gm/dl (3.4-5.0); Aspartate Aminotransferase 13 U/L (15-37); BUN Creatinine Ratio 11.3 (10-20); Blood Urea Nitrogen 12 mg/dl (7-18); Calcium 9.8 mg/dl (8.5-10.1); Carbon Dioxide 25 mmol/L (21-32); Chloride 102 mmol/L (98-107); Creatinine Clr Calc Pharmacy 134.9 ml/min; Est GFR (Non-African American) 86.3; Glucose 326 mg/dl (70-99); Lipase 61 U/L (73-393); Magnesium 1.6 mg/dl (1.8-2.4); Potassium 3.8 mmol/L (3.5-5.1); Sodium 135 mmol/L (136-145)
[2019-08-07] MEDS ORDERED: NovoLIN-R INSULIN PER UNIT CHARGE IV STA (08:32)
[2019-08-07 08:35] LABS: Albumin Globulin Ratio 0.7 (0.9-2); Alkaline Phosphatase 155 U/L (45-117); Bilirubin,Total 0.6 mg/dl (0.2-1); Total Protein 8.7 gm/dl (6.4-8.2); Troponin I < 0.015 ng/ml (0-0.045)
[2019-08-07] MEDS ORDERED: OPTIRAY 320 125ml IV PRN (08:36)
[2019-08-07 08:41] LABS: Beta-Hydroxybutyrate 5.02 mg/dl (0.2-2.81)
[2019-08-07] MEDS ORDERED: MAGNESIUM SULFATE / D5W 1 GM/100 ML BAG IV ONE (08:46)
--- NOTE | 2019-08-07 09:02 | CT Scan Report ---
ABDOMEN AND PELVIS CT WITH IV CONTRAST CT DOSE: 1962.84 mGy.cm HISTORY: Acute mid abdominal pain midabd pain, umbil hernia TECHNIQUE: Multiaxial CT images of the abdomen and pelvis were performed following the IV administrat ion of 120 cc of Optiray 320, A dose lowering technique was utilized adhering to the principles of A HADLEY. COMPARISON STUDY: CT abdomen and pelvis 06/03/2019 FINDINGS: Lung bases are generally clear. No pneumatosis or pneumoperitoneum. Coronary arterial calcifications are noted. No pericardial effusion. Hepatic steatosis. Portions of the patient's anatomy outside the [id number] secondary to body habitus. Spleen is enlarged, 15.6 cm. Pancreas, gallbladder and adren al glands are unremarkable. Right kidney appears unremarkable. Decreased enhancement of the left kidn ey with perinephric inflammation and mild hydroureteronephrosis secondary to an obstructing 7 x 5 x 6 mm calculus of the proximal left ureter just distal to the ureteropelvic junction at the level of L3 -L4. Mild reactive urothelial thickening. Urinary bladder and prostate are unremarkable. Small fat fi lled left inguinal hernia. No abdominal aortic aneurysm. Retroaortic left renal vein. Unremarkable IV C. Nonspecific mildly prominent bilateral inguinal chain lymph nodes. There is no bowel obstruction or bowel wall thickening. Probable pill fragment within the cecum. Norm al appendix. Moderate to large fat filled periumbilical hernia, diastases of 3.8 cm. Degenerative selvin nges are noted about the spine. Bones appear intact. IMPRESSION: 1. Mild left-sided hydroureteronephrosis with delayed enhancement of the left kidney secondary to an obstructing 7 x 5 x 6 mm calculus of the proximal left ureter just distal to the ureteropelvic juncti on at the level of L3-L4. 2. No bowel obstruction or bowel wall thickening. 3. Normal appendix. 4. Hepatic steatosis. 5. Splenomegaly. 6. Moderate to large fat filled periumbilical hernia. ACT 112: Negative or not required by law. The above report was generated using voice recognition software. It may contain grammatical, syntax o r spelling errors. Electronically signed by: Gasper Marte M.D. 08/07/2019 9:00 AM
[2019-08-07] MEDS ORDERED: MoRPHine SULFATE 4 MG/ML 1 ML CARP\\VIAL IV STA ×2 (09:09→10:30)
--- NOTE | 2019-08-07 10:41 | History & Physical Report ---
Date of Service August 07, 2019 Assessment & Plan (1) Left ureteral stone: (2) Hydronephrosis with obstructing calculus: Pt is 44 y/o M with PMH HTN, HLD, DM II, NAFLD, LOUISE presented to ER with complaint of left abdominal pain today. Patient complains of left lower quadrant and left flank pain started this morning with associated vomiting. In ER afebrile, P: 106 down to 92, R: 20, BP: 176/100, 97% on RA. No leukocytosis, BUN: 12, Cr: 1.0, GFR: 86, UA: 3+ glucose, 3+blood -In ER given 1L NSS, morphine total 6mg, Phenergan, Zofran, Toradol -Urine culture pending -Strain urine -Flomax daily -Morphine prn pain, Toradol prn pain -IVF -NPO for now -Urology consult -Monitor CBC, BMP (3) Hypomagnesemia: Magnesium: 1.6 -In ER given 1GM magnesium IV -Monitor (4) Hyperglycemia: (5) Diabetes mellitus type 2 in obese: A1c: 9.1 in 04/2019 Random Glucose 326 in ER. Given 10U Insulin R in ER. Repeat BS -Hold home oral medications -Monitor BSGs -Basal bolus insulin per protocol (6) Hypertension: BP elevated in ER. Suspect secondary to pain -Monitor BP -Control pain -Continue losartan, felodipine (7) Dyslipidemia: -Continue atorvastatin (8) Sleep apnea: -CPAP HS DVT Prophylaxis -SCDs Full code Follows with Dr Marin for routine care Pt was seen and care coordinated with Dr Church. See addendum History of Present Illness Chief Complaint: Abdominal pain Primary Care Provider: Sheron Marin MD Pt is 44 y/o M with PMH HTN, HLD, DM II, NAFLD, LOUISE presented to ER with complaint of left abdominal pain today. Patient complains of left lower quadrant and left flank pain started earlier this morning. Describes pain as sharp with intermittent intensity without aggravating factors. reports feels like prior kidney stone. Also complains of nausea and vomited twice this morning. Reports several episodes of diarrhea yesterday. Patient with history ureteral stent in April 2019. Patient with history of chronic umbilical hernia and denies any increased pain at hernia site or noted discoloration of hernia. Patient states this morning he ate 2 beef sticks at 5:15 AM and 2 cups of water at 6 AM. Denies fever/chills, diaphoresis, hematemesis, melena, hematochezia, CASTRO, dizziness, syncope, vision changes, neck pain, CP, SOB, orthopnea, palpitations, cough, sore throat, choking, otalgia, rhinorrhea, paresthesias, weakness, extremity weakness, extremity edema, rashes, dysuria, hematuria, urinary frequency, urinary hesitancy or urinary retention. Allergies Allergy/AdvReac Type Severity Reaction Status Date / Time MORGAN Inhibitors Allergy Intermediate SWELLING Verified 08/07/19 09:20 TO LIPS Home Medications Home Medications Medication Instructions Recorded Confirmed Type atorvastatin [Lipitor] 10 mg PO QAM 05/05/19 08/07/19 History epinephrine [EpiPen 2-Puneet] 0.3 mg IM Q3H PRN 05/05/19 08/07/19 History felodipine 10 mg PO QAM 05/05/19 08/07/19 History glimepiride [Amaryl] 8 mg PO QAM 05/05/19 08/07/19 History losartan [Cozaar] 50 mg PO QAM 05/05/19 08/07/19 History metformin [Glucophage XR] 2,000 mg PO QAM 05/05/19 08/07/19 History pioglitazone [Actos] 45 mg PO QAM 05/05/19 08/07/19 History aspirin 81 mg PO QAM 08/07/19 08/07/19 History cholecalciferol (vitamin D3) 2,000 unit PO QAM 08/07/19 08/07/19 History [Vitamin D3] hfdemzax-xiq-vwqhn-vit K-lycop 1 tab PO QAM 08/07/19 08/07/19 History [One-A-Day Men's Multivitamin] potassium chloride 10 meq PO BID 08/07/19 08/07/19 History Past Med/Surg History Medical History Acute UTI TREATED RECENTLY FOR (ALL FINISHED ANTIBIOTIC) Diabetes mellitus, type 2 Hypertension (Chronic) Left ureteral stone Morbid obesity (Chronic) Osteoarthritis Sleep apnea (Chronic) CPAP Surgical History History of anesthesia reaction RECENT CYSTOSCOPY AT [facility], WOKE UP IN MIDDLE OF SURGERY. History of cystoscopy History of surgery ATTEMPTED TONSILLECTOMY, PT GIVEN ANESTHESIA BUT SURGEON NEVER DID SURGERY D/T "MOUTH TOO SMALL". [place] teeth removed Family History Father Coronary heart disease Hypertension Grandfather (Maternal) Family history of diabetes mellitus Social History Preferred Language: Polish Communication Ability: Effective Rn Bone Marrow Transplant Required: No Beliefs That Will Affect Care: None Current Living Situation: Alone Other Information That Helps Us Care for You: No Feels Safe at Home: Yes Safety Concerns: Feels Safe At This Time Smoking Status: Never smoker Tobacco Type: smokeless tobacco ; Do You Dip or Chew Tobacco: No ; Second Hand Exposure: No ; Tobacco Cessation Education Requested by Patient: No Hx Alcohol Use: Yes Alcohol type: beer Alcohol Intake Frequency: Holidays/Special Occasions Hx Substance Use: No Review of Systems Review of Systems: All systems reviewed & are unremarkable except as noted in HPI & below Physical Exam Physical Exam: General: no distress, obese Head: normocephalic, atraumatic Eyes: PERRL, EOM's intact, conjunctiva non-injected, anicteric ENT: normal inspection external ears, nose, mucous membranes moist Neck: supple, trachea midline Lungs: clear, no respiratory distress, no wheezing/rhonchi/rales CV: RRR, no murmur, no pretibial edema Abd: normal BS, soft, protuberant, +umbilical hernia nontender, + tenderness to palpation left flank and LLQ without rebound or guarding Ext: no cyanosis, no calf tenderness Neuro: A&O x 3, no focal deficits noted, normal affect Skin: warm, dry Results & Data Vital Signs (Past 12 Hours) Vital Signs Temp Pulse Pulse Resp BP BP Pulse Ox 08/07/19 10:00 94 H 18 167/104 H 96 08/07/19 08:40 92 H 18 182/94 H 96 08/07/19 07:40 97 08/07/19 06:41 36.4 C L 106 H 20 176/100 H 97 Laboratory Results Short CBC 08/07/19 Range/Units 07:30 WBC 9.61 (4.8-10.8) K/uL Hgb 16.5 (14.0-18.0) g/dL Hct 47.1 (42-52) % Plt Count 249 (130-400) K/uL BMP 08/07/19 07:30 Sodium 135 L Potassium 3.8 Chloride 102 Carbon Dioxide 25 BUN 12 Creatinine 1.04 Glucose 326 H* Calcium 9.8 Cardiac Enzymes 08/07/19 Range/Units 07:30 Troponin I < 0.015 (0-0.045) ng/ml Liver Function 08/07/19 Range/Units 07:30 Total Bilirubin 0.6 (0.2-1) mg/dl AST 13 L (15-37) U/L ALT 37 (12-78) U/L Alkaline Phosphatase 155 H (45-117) U/L Albumin 3.7 (3.4-5.0) gm/dl Urine 08/07/19 Range/Units 07:52 Urine Color [place] Urine Appearance Clear (Clear) Urine pH 5.0 (4.5-7.5) Ur Specific [place] 1.029 (1.000-1.030) Urine Protein Negative (Negative) Urine Glucose (UA) 3+ H (Negative) Diagnostic Findings CT ABD/PELVIS W/CONTRAST: IMPRESSION: 1. Mild left-sided hydroureteronephrosis with delayed enhancement of the left kidney secondary to an obstructing 7 x 5 x 6 mm calculus of the proximal left ureter just distal to the ureteropelvic junction at the level of L3-L4. 2. No bowel obstruction or bowel wall thickening. 3. Normal appendix. 4. Hepatic steatosis. 5. Splenomegaly. 6. Moderate to large fat filled periumbilical hernia. Code Status & VTE Plan VTE Prophylaxis Plan VTE Prophylaxis will be ordered: Yes Supervising Physician Co-Signing Physician Notes Pt was seen and examined. Agreed with Johana ISSA exam, assessment and plan. 44 y/o M with PMH HTN, HLD, DM II, NAFLD, LOUISE presented to ER with complaint of left flank pain. Pt said that he had a stent removed by urology back in April for kidney stone. CT abd/plevis showed mild left-sided hydroureteronephrosis with delayed enhancement of the left kidney secondary to an obstructing 7 x 5 x 6 mm calculus of the proximal left ureter just distal to the ureteropelvic junction at the level of L3-L4. UA positive for blood, no leukocytes and nitrite. Continue pain control with morphine. Will consult urology. Continue IVF. Will keep NPO for now until evaluate by urology. Continue monitor closely. MD Lynnette
[2019-08-07] MEDS ORDERED: POLYETHYLENE (MIRALAX) 17 GM PACK PO PRN (11:44)
[2019-08-07] MEDS ORDERED: ONDANSETRON INJ 2 MG/ML 2 ML VIAL IV PRN (11:44)
[2019-08-07] MEDS ORDERED: GLUCAGON FOR INJ 1 MG VIAL SQ PRN (11:44)
[2019-08-07] MEDS ORDERED: GLUCOSE 10 TABS/TUBE PO PRN (11:44)
[2019-08-07] MEDS ORDERED: GLUCOSE 40% GEL 15 GM TUBE PO PRN (11:44)
[2019-08-07] MEDS ORDERED: CARBOHYDRATES FOR HYPOGLYCEMIA PO PRN (11:44)
[2019-08-07] MEDS ORDERED: ACETAMINOPHEN 325 MG TAB PO PRN (11:44)
[2019-08-07] MEDS ORDERED: KETOROLAC TROMETHAMINE 15 MG/ML VIAL IV PRN (11:44)
[2019-08-07] MEDS ORDERED: DEXTROSE 50% 50 ML SYRINGE IV PRN (11:44)
[2019-08-07] MEDS ORDERED: NSS + 20MEQ KCL 20 MEQ/1,000 ML BAG IV SCH (12:00)
[2019-08-07] MEDS: MoRPHine SULFATE 4 MG/ML 1 ML CARP\\VIAL IV PRN ×3 (12:15→18:50)
[2019-08-07] MEDS: INSULIN ASPART 100 UNITS/ML 3 ML PEN SC SCH ×3 (12:45→20:30)
[2019-08-07] MEDS ORDERED: LOSARTAN POTASSIUM 50 MG TAB PO ONE (13:08)
--- NOTE | 2019-08-07 14:27 | Urology Consultation ---
Date of Consultation August 07, 2019 Assessment & Plan (1) Hydronephrosis with obstructing calculus: A/P 44-year-old male with left renal stone debris, history of prior ureteroscopy. Patient's morbid obesity and recurrent stone symptoms are somewhat suspicious for a significant contribution of metabolic syndrome and uric acid lithiasis. Seen the difficulties with the patient surgical intervention of the past I would not be in any chung to replace his stent or return to the OR for ureteroscopic management seen the lack of large nidus previously. I suspect that the patient may be a candidate for more aggressive, acute medical management and potential urinary alkalinization. Patient's urine pH remains at 5 despite initiation of outpatient potassium citrate therapy. We will allow the patient to take p.o. diet tonight and monitor his renal function and symptomatology. We will request the assistance of the nephrology service for consideration of intravenous alkalinization therapy acutely over this admission. Will monitor for signs or symptoms of more acute decompensation for example renal failure or the presence of infection. Patient vocalizes understanding of the treatment plan. Thank you for allowing us to participate in this patient's acute care. Please contact our service with any questions or concerns. (2) Renal colic: History of Present Illness Reason for Consultation: Left-sided stone with colic Attending Physician: Deshawn Church MD History of Present Illness 44-year-old male, known to our service admitted due to acute onset of abdominal pain and left-sided flank pain. I have last seen him 2 months ago at the time of stent removal. His intraoperative findings at the time of ureteroscopy after acute stenting for obstructive uropathy associated with infection are noted. Patient noted to have radiolucent debris in the lower pole of the kidney felt to be consistent with uric acid stone formation. His last CT scan prior to stent removal demonstrates minimal left lower pole stone burden. His current CT imaging demonstrates an increase in stone on the left-hand side with some hydronephrosis and progression of his stone to the left UPJ. Patient's past care was notable for morbid obesity with difficulties with acute stent placement due to an inability to access the bladder with a rigid scope. Patient reports that his pain is currently poorly controlled with intravenous medication. Admission and emergency room records as well as current imaging are personally reviewed. Urology consultation is requested for further management of his acute care. Allergies Allergy/AdvReac Type Severity Reaction Status Date / Time MORGAN Inhibitors Allergy Intermediate SWELLING Verified 08/07/19 09:20 TO LIPS Home Medications Home Medications Medication Instructions Recorded Confirmed Type atorvastatin [Lipitor] 10 mg PO QAM 05/05/19 08/07/19 History epinephrine [EpiPen 2-Puneet] 0.3 mg IM Q3H PRN 05/05/19 08/07/19 History felodipine 10 mg PO QAM 05/05/19 08/07/19 History glimepiride [Amaryl] 8 mg PO QAM 05/05/19 08/07/19 History losartan [Cozaar] 50 mg PO QAM 05/05/19 08/07/19 History metformin [Glucophage XR] 2,000 mg PO QAM 05/05/19 08/07/19 History pioglitazone [Actos] 45 mg PO QAM 05/05/19 08/07/19 History aspirin 81 mg PO QAM 08/07/19 08/07/19 History cholecalciferol (vitamin D3) 2,000 unit PO QAM 08/07/19 08/07/19 History [Vitamin D3] latebbfm-yhp-vxljj-vit K-lycop 1 tab PO QAM 08/07/19 08/07/19 History [One-A-Day Men's Multivitamin] potassium chloride 10 meq PO BID 08/07/19 08/07/19 History Patient History Medical History Acute UTI TREATED RECENTLY FOR (ALL FINISHED ANTIBIOTIC) Diabetes mellitus, type 2 Hypertension (Chronic) Left ureteral stone Morbid obesity (Chronic) Osteoarthritis Sleep apnea (Chronic) CPAP Surgical History History of anesthesia reaction RECENT CYSTOSCOPY AT [facility], WOKE UP IN MIDDLE OF SURGERY. History of cystoscopy History of surgery ATTEMPTED TONSILLECTOMY, PT GIVEN ANESTHESIA BUT SURGEON NEVER DID SURGERY D/T "MOUTH TOO SMALL". [place] teeth removed Family History Father Coronary heart disease Hypertension Grandfather (Maternal) Family history of diabetes mellitus Social History Preferred Language: Tajik Communication Ability: Effective Lease Broker Required: No Beliefs That Will Affect Care: None Current Living Situation: Alone Other Information That Helps Us Care for You: No Feels Safe at Home: Yes Safety Concerns: Feels Safe At This Time Smoking Status: Never smoker Tobacco Type: smokeless tobacco ; Do You Dip or Chew Tobacco: No ; Second Hand Exposure: No ; Tobacco Cessation Education Requested by Patient: No Hx Alcohol Use: Yes Alcohol type: beer Alcohol Intake Frequency: Holidays/Special Occasions Hx Substance Use: No Review of Systems Constitutional: no fever and no chills Eyes: no diplopia Ear, Nose, Mouth, Throat: no ear trauma Respiratory: no hemoptysis Cardiovascular: no chest pain Gastrointestinal: + abdominal pain; no vomiting Musculoskeletal: + back pain Integumentary: no acne and no boil Neurologic: no paralysis Psychiatric: no hopelessness Endocrine: + fatigue Hematologic / Lymphatic: no easy bleeding and no lymphadenopathy Allergy / Immunological: no tongue swelling Physical Exam Constitutional: + acute distress (Uncomfortable) and + morbidly obese Eyes: eyes not dysmorphic ENMT: Ears: no external ear abnormality Neck: trachea midline; no anterior neck swelling Respiratory: no respiratory distress and does not use accessory muscles Cardiovascular: Vessels: radial pulses present Gastrointestinal (Abdomen): Inspection/Auscultation: abdomen not distended Percussion/Palpation: abdomen soft; abdomen nontender Musculoskeletal: Head/Neck/Chest: normocephalic and neck supple Skin: normal turgor Neurologic: awake; not obtunded Psychiatric: Orientation: oriented x 3 Lymphatic: no lymphadenopathy Results & Data Vital Signs (Past 12 Hours) Vital Signs Temp Pulse Pulse Pulse Resp BP BP 08/07/19 11:43 36.7 C 93 H 16 08/07/19 10:00 94 H 18 167/104 H 08/07/19 08:40 92 H 18 182/94 H 08/07/19 07:40 08/07/19 06:41 36.4 C L 106 H 20 176/100 H Pulse Ox 08/07/19 11:43 95 08/07/19 10:00 96 08/07/19 08:40 96 08/07/19 07:40 97 08/07/19 06:41 97 Laboratory Results Laboratory Results - last 48 hr 08/07/19 08/07/19 08/07/19 07:30 07:30 07:52 WBC 9.61 RBC 5.79 Hgb 16.5 Hct 47.1 MCV 81.3 MCH 28.5 MCHC 35.0 RDW Std Deviation 41.3 RDW Coeff of Celso 13.9 Plt Count 249 MPV 10.8 H Immature Gran % (Auto) 0.5 Neut % (Auto) 75.8 Lymph % (Auto) 15.0 Glynn % (Auto) 6.7 Eos % (Auto) 1.8 Baso % (Auto) 0.2 Immature Gran # (Auto) 0.05 H Neut # (Auto) 7.29 H Lymph # (Auto) 1.44 Glynn # (Auto) 0.64 H Eos # (Auto) 0.17 Baso # (Auto) 0.02 Sodium 135 L Potassium 3.8 Chloride 102 Carbon Dioxide 25 Anion Gap 9.0 BUN 12 Creatinine 1.04 Est Cr Clr Drug Dosing 134.9 Est GFR ( Amer) 100.0 Est GFR (Non-Af Amer) 86.3 BUN/Creatinine Ratio 11.3 Glucose 326 H* POC Glucose Calcium 9.8 Magnesium 1.6 L Total Bilirubin 0.6 AST 13 L ALT 37 Alkaline Phosphatase 155 H Troponin I < 0.015 Total Protein 8.7 H Albumin 3.7 Globulin 5.0 H Albumin/Globulin Ratio 0.7 L Lipase 61 L Beta-Hydroxybutyric Acd 5.02 H Urine Color [place] Urine Appearance Clear Urine pH 5.0 Ur Specific [place] 1.029 Urine Protein Negative Urine Glucose (UA) 3+ H Urine Ketones Trace H Urine Blood 3+ H Urine Nitrite Negative Urine Bilirubin Negative Urine Urobilinogen Negative Ur Leukocyte Esterase Negative Urine WBC (Auto) 1-5 Urine RBC (Auto) >30 H U Hyaline Cast (Auto) 1-5 U Epithel Cells (Auto) >30 H Urine Bacteria (Auto) Negative 08/07/19 09:31 WBC RBC Hgb Hct MCV MCH MCHC RDW Std Deviation RDW Coeff of [place] Plt Count MPV Immature Gran % (Auto) Neut % (Auto) Lymph % (Auto) Glynn % (Auto) Eos % (Auto) Baso % (Auto) Immature Gran # (Auto) Neut # (Auto) Lymph # (Auto) Glynn # (Auto) Eos # (Auto) Baso # (Auto) Sodium Potassium Chloride Carbon Dioxide Anion Gap BUN Creatinine Est Cr Clr Drug Dosing Est GFR ( Amer) Est GFR (Non-Af Amer) BUN/Creatinine Ratio Glucose POC Glucose 266 H Calcium Magnesium Total Bilirubin AST ALT Alkaline Phosphatase Troponin I Total Protein Albumin Globulin Albumin/Globulin Ratio Lipase Beta-Hydroxybutyric Acd Urine Color Urine Appearance Urine pH Ur Specific [place] Urine Protein Urine Glucose (UA) Urine Ketones Urine Blood Urine Nitrite Urine Bilirubin Urine Urobilinogen Ur Leukocyte Esterase Urine WBC (Auto) Urine RBC (Auto) U Hyaline Cast (Auto) U Epithel Cells (Auto) Urine Bacteria (Auto) PG Care Time/CCT Total # of Minutes Spent Total Time Spent with Patient: Total time spent is greater than 50% in coordination of care (as documented) at patient's floor/unit and/or counseling patient:
--- NOTE | 2019-08-07 18:37 | Nephrology Consultation ---
Date of Consultation August 07, 2019 Assessment & Plan (1) Hydronephrosis with obstructing calculus: Urology consultation reviewed. Multiple risk factors for uric acid stone. The patient will require close outpatient follow-up upon discharge. At this time he requires continued aggressive hydration. I would suggest switching his IV fluids from normal saline solution to electrolyte neutral solution. Oz certainly provided some bicarbonate may provide some benefit given his history of uric acid stones. I would switch his IV fluids to half-normal saline +75 milliequivalents of sodium bicarbonate. I would also add oral sodium bicarbonate to help with alkalization I will repeat a urinalysis in the morning as well as a basic metabolic profile. I discussed in detail appropriate risk factor modification moving forward. I would suggest that Ac schedule follow-up in the Nephrology Clinic will complete a 24 hour urine collection once he is she discharged from the hospital. In the interim his symptom burden is improving his renal function is appropriate. He has no evidence of urinary tract infection. Certainly consideration can be given to adjusting his diabetic regimen as well as antihypertensive regimen moving forward. At this time however it is unclear Ac has been taking his medications as prescribed. He is going to bring his medications from home to help reconcile this.. History of Present Illness Reason for Consultation: Nephrolithiasis Requesting Physician: Deshawn Church MD Attending Physician: Deshawn Church MD History of Present Illness Mr. Ac Lim is a morbidly obese 44 year-old male with uncont rolled diabetes mellitus II, hypertension, NAFLD, and history of uric acid kidney stones. He presented to the ER at [facility] today with left sided flank pain. The patient follows in the urology clinic with Dr. Ojeda. He underwent ureteral stent in April 2019. CT scan demonstrates can increase in stone on the left-hand side with some hydronephrosis and progression of his stone to the left UPJ. He is receiving IV saline at this time. Creatinine remains normal. Electrolytes within normal limits. Urine pH 5. BP accelerated. Ac reported overall improvement in symptoms at the time of my assessment. He denies any fevers or chills. He denies any other urinary symptoms. Ac has not had metabolic work up for stones in the past. He was given an Rx for K-citrate in the past but notes that he was not taking the medication. He is undergoing evaluation for gastric bypass surgery in the Spring. Allergies Allergy/AdvReac Type Severity Reaction Status Date / Time MORGAN Inhibitors Allergy Intermediate SWELLING Verified 08/07/19 09:20 TO LIPS Home Medications Home Medications Medication Instructions Recorded Confirmed Type atorvastatin [Lipitor] 10 mg PO QAM 05/05/19 08/07/19 History epinephrine [EpiPen 2-Puneet] 0.3 mg IM Q3H PRN 05/05/19 08/07/19 History felodipine 10 mg PO QAM 05/05/19 08/07/19 History glimepiride [Amaryl] 8 mg PO QAM 05/05/19 08/07/19 History losartan [Cozaar] 50 mg PO QAM 05/05/19 08/07/19 History metformin [Glucophage XR] 2,000 mg PO QAM 05/05/19 08/07/19 History pioglitazone [Actos] 45 mg PO QAM 05/05/19 08/07/19 History aspirin 81 mg PO QAM 08/07/19 08/07/19 History cholecalciferol (vitamin D3) 2,000 unit PO QAM 08/07/19 08/07/19 History [Vitamin D3] fhnvuzkp-iel-njqja-vit K-lycop 1 tab PO QAM 08/07/19 08/07/19 History [One-A-Day Men's Multivitamin] potassium chloride 10 meq PO BID 08/07/19 08/07/19 History Patient History Medical History Acute UTI TREATED RECENTLY FOR (ALL FINISHED ANTIBIOTIC) Diabetes mellitus, type 2 Hypertension (Chronic) Left ureteral stone Morbid obesity (Chronic) Osteoarthritis Sleep apnea (Chronic) CPAP Surgical History History of anesthesia reaction RECENT CYSTOSCOPY AT [facility], WOKE UP IN MIDDLE OF SURGERY. History of cystoscopy History of surgery ATTEMPTED TONSILLECTOMY, PT GIVEN ANESTHESIA BUT SURGEON NEVER DID SURGERY D/T "MOUTH TOO SMALL". [place] teeth removed Family History Father Coronary heart disease Hypertension Grandfather (Maternal) Family history of diabetes mellitus Social History Preferred Language: Yoruba Communication Ability: Effective Senior It Recruiter Required: No Beliefs That Will Affect Care: None Current Living Situation: Alone Other Information That Helps Us Care for You: No Feels Safe at Home: Yes Safety Concerns: Feels Safe At This Time Smoking Status: Never smoker Tobacco Type: smokeless tobacco ; Do You Dip or Chew Tobacco: No ; Second Hand Exposure: No ; Tobacco Cessation Education Requested by Patient: No Hx Alcohol Use: Yes Alcohol type: beer Alcohol Intake Frequency: Holidays/Special Occasions Hx Substance Use: No Review of Systems Review of Systems: All systems reviewed & are unremarkable except as noted in HPI & below Physical Exam Constitutional: well developed and + morbidly obese; no acute distress Eyes: no scleral abnormality and no corneal abnormality ENMT: Mouth: no oral mucosal abnormality and oral mucous membranes not dry Neck: normal visual inspection and trachea midline Respiratory: normal respiratory effort Auscultation: lungs clear to auscultation bilaterally Cardiovascular: Rate/Rhythm: regular rate Heart Sounds: normal S1 and normal S2 Extremities: no edema Musculoskeletal: Extremities: no cyanosis and no clubbing Skin: normal turgor; no lesions Neurologic: Motor/Sensory: no tremor and no asterixis Psychiatric: Orientation: alert and oriented x 3 Results & Data Vital Signs (Past 12 Hours) Vital Signs Temp Pulse Pulse Pulse Pulse Resp BP 08/07/19 16:02 37.1 C 93 H 20 08/07/19 11:43 36.7 C 93 H 16 08/07/19 10:00 94 H 18 08/07/19 08:40 92 H 18 08/07/19 07:40 08/07/19 06:41 36.4 C L 106 H 20 176/100 H BP Pulse Ox 08/07/19 16:02 195/110 H 92 08/07/19 11:43 95 08/07/19 10:00 167/104 H 96 08/07/19 08:40 182/94 H 96 08/07/19 07:40 97 08/07/19 06:41 97 PG Care Time/CCT Total # of Minutes Spent Total Time Spent with Patient: Total time spent is greater than 50% in coordination of care (as documented) at patient's floor/unit and/or counseling patient:
[2019-08-07] MEDS: SODIUM CHLORIDE 0.45 % 1,000 ML, SODIUM BICARBONATE 8.4% 75 ML IV SCH (20:29)
[2019-08-07] MEDS: INSULIN GLARGINE SOLOSTAR 100 UNITS/ML 3 ML PEN SC SCH (20:30)
[2019-08-07] MEDS ORDERED: TAMSULOSIN HCL 0.4 MG CAP PO SCH (21:00)
[2019-08-07] MEDS: SODIUM BICARBONATE 650 MG TAB PO SCH (23:48)
[2019-08-08] MEDS: SODIUM CHLORIDE 0.45 % 1,000 ML, SODIUM BICARBONATE 8.4% 75 ML IV SCH ×2 (05:00→12:15)
[2019-08-08] MEDS: SODIUM BICARBONATE 650 MG TAB PO SCH ×2 (05:01→12:15)
[2019-08-08 06:25] LABS: Hematocrit (blood only) 41.1 % (42-52); Hemoglobin 14.3 g/dL (14.0-18.0); Mean Corpuscular Hemoglobin 28.5 pg (25-34); Mean Corpuscular Hgb Conc 34.8 g/dL (32-36); Mean Corpuscular Volume 81.9 fL (80-100); Mean Platelet Volume 10.1 fL (7.4-10.4); Platelet Count 203 K/uL (130-400); RDW Standard Deviation 42.1 fL (36.4-46.3); Red Blood Count 5.02 M/uL (4.7-6.1); White Blood Count 9.64 K/uL (4.8-10.8)
[2019-08-08 07:00] LABS: BUN Creatinine Ratio 10.4 (10-20); Calcium 8.2 mg/dl (8.5-10.1); Creatinine Clr Calc Pharmacy 118.8 ml/min; Est GFR (African American) 85.9; Est GFR (Non-African American) 74.1; Magnesium 1.8 mg/dl (1.8-2.4); Potassium 3.8 mmol/L (3.5-5.1)
[2019-08-08] MEDS: INSULIN ASPART 100 UNITS/ML 3 ML PEN SC SCH ×2 (08:24→12:15)
[2019-08-08] MEDS: INSULIN GLARGINE SOLOSTAR 100 UNITS/ML 3 ML PEN SC SCH (08:25)
[2019-08-08] MEDS ORDERED: ASPIRIN 81 MG ECTAB PO SCH (09:00)
[2019-08-08] MEDS ORDERED: ATORVASTATIN 10 MG TAB PO SCH (09:00)
[2019-08-08] MEDS ORDERED: LOSARTAN POTASSIUM 50 MG TAB PO SCH (09:00)
[2019-08-08] MEDS ORDERED: CHOLECALCIFEROL 1,000 UNITS TAB PO SCH (09:00)
[2019-08-08] MEDS ORDERED: FELODIPINE 5 MG TABCR PO SCH (09:00)
--- NOTE | 2019-08-08 10:01 | Nephrology Progress Note ---
Date of Service August 08, 2019 Assessment & Plan (1) Hydronephrosis with obstructing calculus: Urine pH 5. Tolerating IVF. Good urine output. No passage of stone. Denies significant pain. Kidney function and electrolytes remain normal. We reviewed the importance of close outpatient follow up today. We discussed the need for appropriate blood glucose control in management of stone disease. I will continue IVF+HCO3 as well as oral NaHCO3 for now while hospitalized. Ac should continue oral NaHCO3 at least 1300 twice daily post discharge. Subjective No acute events overnight. Pain significantly improved. Good urine output. Denies significant fluid retention. Ac feels well this morning. He hopes to possibly go home today. Review of Systems Review of Systems: All systems reviewed & are unremarkable except as noted in HPI & below Physical Exam Constitutional: well developed and + morbidly obese; no acute distress Eyes: no scleral abnormality and no corneal abnormality ENMT: Mouth: no oral mucosal abnormality and oral mucous membranes not dry Neck: normal visual inspection and trachea midline Respiratory: normal respiratory effort Auscultation: lungs clear to auscultation bilaterally Cardiovascular: Rate/Rhythm: regular rate Heart Sounds: normal S1 and normal S2 Extremities: no edema Musculoskeletal: Extremities: no cyanosis and no clubbing Skin: normal turgor; no lesions Neurologic: Motor/Sensory: no tremor and no asterixis Psychiatric: Orientation: alert and oriented x 3 Results & Data Vital Signs (Past 12 Hours) Vital Signs Temp Pulse Pulse Resp BP Pulse Ox 08/08/19 07:29 81 08/08/19 07:00 36.4 C L 79 20 131/85 96 08/08/19 03:18 37.1 C 86 18 147/95 H 96 08/08/19 00:00 90 08/07/19 23:08 37.3 C 85 20 152/98 H 96 Laboratory Results Laboratory Results - last 24 hr 08/07/19 08/07/19 08/07/19 12:42 16:48 20:18 WBC RBC Hgb Hct MCV MCH MCHC RDW Std Deviation RDW Coeff of Celso Plt Count MPV Sodium Potassium Chloride Carbon Dioxide Anion Gap BUN Creatinine Est Cr Clr Drug Dosing Est GFR ( Amer) Est GFR (Non-Af Amer) BUN/Creatinine Ratio Glucose POC Glucose 221 H 194 H 228 H Calcium Magnesium 12/20/19 12/20/19 12/20/19 06:12 06:12 07:51 WBC 9.64 RBC 5.02 Hgb 14.3 Hct 41.1 L MCV 81.9 MCH 28.5 MCHC 34.8 RDW Std Deviation 42.1 RDW Coeff of Celso 14.0 Plt Count 203 MPV 10.1 Sodium 136 Potassium 3.8 Chloride 105 Carbon Dioxide 24 Anion Gap 7.0 BUN 12 Creatinine 1.18 Est Cr Clr Drug Dosing 118.8 Est GFR ( Amer) 85.9 Est GFR (Non-Af Amer) 74.1 BUN/Creatinine Ratio 10.4 Glucose 215 H POC Glucose 218 H Calcium 8.2 L D Magnesium 1.8 PG Care Time/CCT Total # of Minutes Spent Total Time Spent with Patient: Total time spent is greater than 50% in coordination of care (as documented) at patient's floor/unit and/or counseling patient:
--- NOTE | 2019-08-08 10:01 | Urology Progress Note ---
Date of Service August 08, 2019 Assessment & Plan (1) Hydronephrosis with obstructing calculus: A/P 44-year-old male with left renal stone debris, history of prior ureteroscopy. Appreciate nephrology's recommendations. Outpatient followup with nephrology will be extremely important. Pt is currently asymptomatic, no indication for urgent surgical intervention at this time. Okay to provide diet from our perspective. He is motivated to discharge home, disposition to be determined by primary team. Okay for discharge from our perspective. Please consult our service urgently if patient develops fever >101F, intractable pain or nausea, as this may necessitate urgent surgical intervention. Thank you for the consultation. Followup already arranged, timeframe okay with Dr. Ojeda. Subjective Pt is resting comfortably in bed, sitting upright. Denies any pain at all. Nephrology notes reviewed, appreciate input. IVF infusing Denies n/v/f/c. Denies dysuria, LUTS. VSS, NPO awaiting our recommendations this AM. Review of Systems Review of Systems: All systems reviewed & are unremarkable except as noted in HPI & below Physical Exam Physical Exam: A&Ox3 resp rate regular abd obese, soft Results & Data Vital Signs (Past 12 Hours) Vital Signs Temp Pulse Pulse Resp BP Pulse Ox 08/08/19 07:29 81 08/08/19 07:00 36.4 C L 79 20 131/85 96 08/08/19 03:18 37.1 C 86 18 147/95 H 96 08/08/19 00:00 90 08/07/19 23:08 37.3 C 85 20 152/98 H 96 PG Care Time/CCT Total # of Minutes Spent Total Time Spent with Patient: Total time spent is greater than 50% in coordination of care (as documented) at patient's floor/unit and/or counseling patient:
[2019-08-08 10:46] LABS: Appearance Urine Clear (Clear); Bilirubin Urine Negative (Negative); Blood Urine Negative (Negative); Color Urine Yellow; Glucose Urine UA 1+ (Negative); Ketones Urine Trace (Negative); Leukocyte Esterase Urine Negative (Negative); Nitrite Urine Negative (Negative); Protein Urine Negative (Negative); Specific Gravity Urine 1.023 (1.000-1.030); Urobilinogen Urine Negative (Negative)
--- NOTE | 2019-08-08 11:51 | Discharge Summary ---
Date of Service August 08, 2019 Admission HPI Per Admitting Provider Pt is 44 y/o M with PMH HTN, HLD, DM II, NAFLD, LOUISE presented to ER with complaint of left abdominal pain today. Patient complains of left lower quadrant and left flank pain started earlier this morning. Describes pain as sharp with intermittent intensity without aggravating factors. reports feels like prior kidney stone. Also complains of nausea and vomited twice this morning. Reports several episodes of diarrhea yesterday. Patient with history ureteral stent in April 2019. Patient with history of chronic umbilical hernia and denies any increased pain at hernia site or noted discoloration of hernia. Patient states this morning he ate 2 beef sticks at 5:15 AM and 2 cups of water at 6 AM. Denies fever/chills, diaphoresis, hematemesis, melena, hematochezia, CASTRO, dizziness, syncope, vision changes, neck pain, CP, SOB, orthopnea, palpitations, cough, sore throat, choking, otalgia, rhinorrhea, paresthesias, weakness, extremity weakness, extremity edema, rashes, dysuria, hematuria, urinary frequency, urinary hesitancy or urinary retention. Admission Exam Per Admitting Provider General: no distress, obese Head: normocephalic, atraumatic Eyes: PERRL, EOM's intact, conjunctiva non-injected, anicteric ENT: normal inspection external ears, nose, mucous membranes moist Neck: supple, trachea midline Lungs: clear, no respiratory distress, no wheezing/rhonchi/rales CV: RRR, no murmur, no pretibial edema Abd: normal BS, soft, protuberant, +umbilical hernia nontender, + tenderness to palpation left flank and LLQ without rebound or guarding Ext: no cyanosis, no calf tenderness Neuro: A&O x 3, no focal deficits noted, normal affect Skin: warm, dry Principal Diagnosis L ureteral colic 2/2 obstructing stone. Uncontrolled diabetes Discharge Data Allergies Allergy/AdvReac Type Severity Reaction Status Date / Time MORGAN Inhibitors Allergy Intermediate SWELLING Verified 08/07/19 09:20 TO LIPS Consultations 08/07/19 09:53 ED Decision to Admit Stat 08/07/19 11:44 Consult Urology Routine 08/07/19 12:23 Consult Nephrology Routine Ordered Studies 08/07/19 07:01 CT abd pelvis IV con only Stat Hospital Course (1) Left ureteral stone: (2) Hydronephrosis with obstructing calculus: (3) Hypomagnesemia: (4) Diabetes mellitus type 2 in obese: The patient was admitted to the hospitalist service and urology was consulted. The patient was continued on IV fluids and Flomax, with pain control efforts overnight. Dr. Ojeda saw the patient and is familiar with him performing prior procedures on him in the past. 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 As he had recently had difficulties in the previous surgical and intervention he did not recommend ureteroscopic management or surgical management at this time. In lieu of this nephrology was consulted for more aggressive, acute medical management with urinary alkalinization. He was placed on a bicarb drip as his urine pH was found to be 5. He had no evidence of urinary infection and no evidence of acute kidney injury. Magnesium was found to be 1.6 and was replaced with IV supplementation. Nephrology recommended bicarbonate supplements in addition to your quit continuation of uro-crit at time of discharge with close nephrology follow-up. At time of discharge patient was hemodynamically stable and afebrile, was asymptomatic with respect to back or abdominal pain, denied any hematuria, and was doing well clinically. He was oxygenating well on room air. He was mentating and ambulating at baseline. He was discharged in stable condition with close primary care follow-up recommended. It should be noted that his diabetes appears uncontrolled and close primary care follow-up was recommended to address this, his morbid obesity, and fatty liver. Total Time Total Time Spent Total Time Spent (In Minutes): 60 Total Time Includes: Examination of the Patient, Discharge Planning, Medication Reconciliation, Communication With Other Providers and Other (arrange followup) Discharge Plan Discharge Items Patient Disposition: Home - Self-Care Reason For Visit: URETERAL CALCULUS Discharge Diagnosis: L ureteral colic 2/2 obstructing stone. Condition on Discharge: Good Activity: Resume your previous activity Non-emergency contact: Primary Care Provider and Urologist Call non-emergency contact if: you have any medication questions, your symptoms worsen, your pain is not controlled, your pain is worsening, your pain is unusual for you, your pain is concerning for you and you have a fever Follow-up/Referrals: Sheron Marin MD [Primary Care Provider] - Diet: Carb Consistent or DM2 Addtl Attending Provider Instructions: Please take all medications as instructed on discharge list below. You have the following appointment scheduled with your primary care provider: 08/18/2019 11:00 AM Ryann Ricardo MD Internal Medicine [facility] Please discuss your diabetes with your PCP on follow-up as this is very uncontrolled and can lead to preventable long-term complications down the road. You were also found to have fat in your liver, which can also create preventable health problems for you down the road. It is strongly recommended that you start a diet and exercise program to improve your lean muscle mass and reduce body fat. Please work closely with your physician on strategies to achieve these goals. Please follow-up with Dr. Redd with [facility] Nephrology as instructed, and continue the bicarbonate pills twice daily until otherwise instructed by a physician. Please follow-up with Urology as instructed. It was a pleasure taking care of you! Please call if you have any questions or problems. You can reach a [facility] hospitalist on duty at [facility] 24 hours a day by calling [phone]. Take care of yourself. Megan Frost, DO [facility] Pending Studies at Discharge: No Stand-Alone Forms: Call Back Authorization, [facility], Smoking Cessation Medications and DC Order Prescriptions: New tamsulosin 0.4 mg Capsule 0.4 mg PO HS Qty: 30 RF: 1 sodium bicarbonate 650 mg Tablet 650 mg PO BID Qty: 60 RF: 1 Continued aspirin 81 mg Tablet,Delayed Release (Dr/Ec) 81 mg PO QAM RF: 0 cholecalciferol (vitamin D3) [Vitamin D3] 2,000 unit Tablet 2,000 unit PO QAM RF: 0 One-A-Day Men's Multivitamin 400-20-300 mcg Tablet 1 tab PO QAM RF: 0 potassium citrate [Urocit-K 10] 10 mEq (1,080 mg) Tablet Extended Release 10 meq PO TID RF: 0 metformin [Glucophage XR] 500 mg tablet extended release 24 hr 2,000 mg PO QAM RF: 0 glimepiride [Amaryl] 4 mg tablet 8 mg PO QAM RF: 0 felodipine 10 mg tablet extended release 24 hr 10 mg PO QAM RF: 0 losartan [Cozaar] 50 mg tablet 50 mg PO QAM RF: 0 atorvastatin [Lipitor] 10 mg tablet 10 mg PO QAM RF: 0 pioglitazone [Actos] 45 mg tablet 45 mg PO QAM RF: 0 epinephrine [EpiPen 2-Puneet] 0.3 mg/0.3 mL Auto-Injector 0.3 mg IM Q3H PRN (Reason: Allergic Reaction) RF: 0 Discharge Orders: Discharge Order (Routine); Ordered 08/08/19 Ordered By: Megan Frost Admission Data Admit Date/Time: 08/07/19 10:39 Attending Provider: Deshawn Church Admit Provider: Deshawn Church Primary Care Provider: Sheron Marin Other Providers: Megan Frost ; Victorino Martinez ; To Guerra ; Patricia Abrams ; Mike Redd ; Victorino Dior
== END 2019-08-08 14:20 | disposition home or self-care (01) | DRG 694 ==
LOC: ED 06:40 → 2N 10:39